=== PATIENT | female | born 1980 | race Caucasian/White ===

== ENCOUNTER 2023-11-25 17:38 | Inpatient (IN) ==
[2023-11-25 18:20] LABS: Appearance Urine Clear (Clear); Bilirubin Urine Negative (Negative); Blood Urine Negative (Negative); Color Urine Yellow; Glucose Urine UA Negative (Negative); Ketones Urine Negative (Negative); Leukocyte Esterase Urine Negative (Negative); Nitrite Urine Negative (Negative); Protein Urine Negative (Negative); Specific Gravity Urine 1.004 (1.000-1.030); Urobilinogen Urine Negative (Negative)
--- NOTE | 2023-11-25 18:30 | Emergency Department Note ---
Impression & Plan Anxiety and depression, Insomnia ED Provider Note Provider: Lui Braswell MD DATE OF SERVICE: 11/25/2023 CHIEF COMPLAINT: Depression anxiety not sleeping HISTORY OF PRESENT ILLNESS: Patient is a 43-year-old female history of anxiety and depression in the past presenting with today stating ongoing issues over the past 2 to 3 months. No clear trigger. Has been working with outpatient psychiatrist and has been on several medications and has had some titration of these including increasing Seroquel as well as using trazodone and Remeron. Not sleeping. We got an hour to sleep last night. Denies nightmares. Not sleeping during the day. Is a smoker but denies marijuana or drug or alcohol use. Has had some passive thoughts according to present of not wanting to be alive living with this but no active plans or attempts at the current time. History of prior psychiatric hospitalization just over a year ago at [facility]. As well as previous before then. Similar episodes. No hallucinations. No wishes to harm anybody else. PAST MEDICAL HISTORY: As noted above MEDICATIONS: Reviewed home medications SOCIAL HISTORY: PHYSICAL EXAM: GENERAL: alert and oriented on bed at bedside Head: normocephalic and atraumatic EYES: No injection, discharge or icterus although slightly tearful. EOMI. NECK: Trachea midline. ENT: Mucous membranes pink and moist. LUNGS: Airway patent. No retractions or tachypnea HEART: Regular rate and rhythm. SKIN: Acyanotic, warm, dry, without rashes EXTREMITIES: Without swelling, tenderness or deformity NEUROLOGICAL: No focal deficits. No aphasia. No facial droop or slurred speech. Ambulatory. Psych: Anxious. Somewhat tearful. Denies any hallucinations. Not responding to external stimuli. Denies any HI. Denies active SI but has had some passive thoughts. No SI plans or attempts reported. Patient's laboratory studies and imaging reviewed. Differential includes Mood disorder, infection, hypoglycemia, electrolyte abnormalities, cardiac sources, intracerebral event, toxicologic, trauma, neurologic, as well as other pathologies. IMPRESSION/MEDICAL DECISION MAKING: Basic blood work obtained. History of similar psychiatric episodes in the past with anxiety and depression affecting sleep. Has been following with outpatient psychiatry and had medications titrated. No acute suicide attempt or active plan but some passive thoughts. Seen with case management here. Basic labs obtained without significant abnormality. Discussed with her and her that we can provide additional outpatient referrals but she has had some basic medication titration already and do not feel comfortable providing more additional medications from the ER. Discussed option the possible inpatient voluntary referral. Do not believe I have involuntary grounds. Has a history of psychiatric hospitalization in the past. Patient accepted to [facility] on voluntary basis for inpatient mental health treatment. DIAGNOSIS: Depression, anxiety, insomnia DISPOSITION: To [facility] on a 201 for inpatient treatment. 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 Beliefs That Will Affect Care: None Feels Safe at Home: Yes Gender Identity: Female Assistive Devices: None Allergies Allergies Allergy/AdvReac Type Severity Reaction Status Date / Time No Known Allergies Allergy Unverified 11/25/23 18:13 Home Meds Home Medications Medication Instructions Recorded Confirmed clonazepam 1 mg tablet (Klonopin) 1 mg PO TID PRN Anxiety 11/25/23 11/25/23 fluoxetine 20 mg capsule (Prozac) 20 mg PO DAILY 11/25/23 11/25/23 mirtazapine 15 mg tablet (Remeron) 7.5 mg PO HS PRN Sleep 11/25/23 11/25/23 quetiapine 300 mg tablet (Seroquel) 600 mg PO HS 11/25/23 11/25/23 sertraline 50 mg tablet 50 mg PO HS 11/25/23 11/25/23 trazodone 150 mg tablet 150 mg PO HS PRN Sleep 11/25/23 11/25/23 Results & Data (ED) Vital Signs Vital Signs - 24 hr 11/25/23 17:45 Temperature 36.8 C Temperature Source Temporal Artery Scan Pulse Rate 102 H Respiratory Rate 18 Blood Pressure 121/70 Blood Pressure Mean 87 Pulse Oximetry 98 Oxygen Delivery Method Room Air Sepsis Recent Fever Within 48 Hours No Sepsis New/Unexplained Change in Mental Status No Sepsis Action Taken by Nursing No Action Required Laboratory Data 11/25/23 18:05 11/25/23 18:05 Lab Results 11/25/23 11/25/23 Range/Units 17:57 18:05 WBC 7.63 (4.8-10.8) K/ul RBC 4.97 (4.20-5.40) M/uL Hgb 16.5 H (12.0-16.0) g/dl Hct 47.4 H (37.0-47.0) % MCV 95.4 (80.0-100.0) fL MCH 33.2 (25.0-34.0) pg MCHC 34.8 (32.0-36.0) g/dL RDW Std Deviation 40.6 (36.4-46.3) fL RDW Coeff of Brynn 11.8 (11.5-14.5) % Plt Count 284 (130-400) K/uL MPV 9.7 (9.4-12.4) fL Immature Gran % (Auto) 0.4 % Neut % (Auto) 70.9 % Lymph % (Auto) 19.4 % [place] % (Auto) 6.3 % Eos % (Auto) 2.2 % Baso % (Auto) 0.8 % Neut # (Auto) 5.41 (1.40-6.50) K/uL Lymph # (Auto) 1.48 (1.20-3.40) K/uL [place] # (Auto) 0.48 (0.11-0.59) K/uL Eos # (Auto) 0.17 (0.00-0.50) K/uL Baso # (Auto) 0.06 (0.00-0.20) K/uL Immature Gran # (Auto) 0.03 (0.01-0.20) K/uL Sodium 139 (136-145) mmol/L Potassium 3.8 (3.5-5.1) mmol/L Chloride 105 (98-107) mmol/L Carbon Dioxide 27 (21-32) mmol/L Anion Gap 7 (3-11) BUN 10 (6-23) mg/dl Creatinine 0.79 (0.6-1.2) mg/dl Est Cr Clr Drug Dosing 77.4 ml/min Est GFR ( Amer) 105.5 ml/min Est GFR (Non-Af Amer) 91.0 ml/min BUN/Creatinine Ratio 12.7 (10-20) Glucose 112 H (70-99(Fasting)) mg/dl Calcium 9.4 (8.6-10.3) mg/dl Total Bilirubin 0.3 (0.2-1.0) mg/dl AST 14 (13-39) U/L ALT 9 (7-52) U/L Alkaline Phosphatase 58 (34-104) U/L Total Protein 7.3 (6.0-8.3) gm/dl Albumin 4.5 (3.4-5.0) gm/dl Globulin 2.8 (2.5-4.0) gm/dl Albumin/Globulin Ratio 1.6 (0.9-2) TSH 3.732 (0.300-4.500) uIu/ml HCG, Qual Negative (Negative) Urine Color Yellow Urine Appearance Clear (Clear) Urine pH 6.0 (4.5-7.5) Ur Specific [place] 1.004 (1.000-1.030) Urine Protein Negative (Negative) Urine Glucose (UA) Negative (Negative) Urine Ketones Negative (Negative) Urine Blood Negative (Negative) Urine Nitrite Negative (Negative) Urine Bilirubin Negative (Negative) Urine Urobilinogen Negative (Negative) Ur Leukocyte Esterase Negative (Negative) Salicylates < 3.0 L (3.0-30) mg/dl Urine Opiates Screen Neg (Neg) Ur Methadone, Qual Neg (Neg) Acetaminophen < 3 L (10-30) ug/ml Urine Barbiturates Neg (Neg) Ur Phencyclidine (PCP) Neg (Neg) U Amphetamin/Meth Scrn Neg (Neg) MDMA (Ecstasy) Screen Neg (Neg) U Benzodiazepines Scrn Neg (Neg) Ur Cocaine Metabolite Neg (Neg) U Marijuana (THC) Screen Neg (Neg) Ethyl Alcohol mg/dL < 10.0 (<10.0) mg/dl SARS-CoV-2, RNA, NAAT NEGATIVE (NEGATIVE) Administered Medications Mirtazapine (Mirtazapine Tab 15 Mg Tab) 7.5 mg PO HS SASHA Stop: 12/25/23 22:59 Last Admin: 11/25/23 23:49 Dose: 7.5 mg Documented By: JOSE RAMON Quetiapine Fumarate (Quetiapine Fumarate 300 Mg Tablet) 600 mg PO HS SASHA Stop: 12/25/23 22:59 Last Admin: 11/25/23 23:50 Dose: 600 mg Documented By: JOSE RAMON Discharge Plan Visit Data Chief Complaint: Mental Health Evaluation Stated Complaint: MENTAL HEALTH EVAL ED Provider: Lui Braswell Discharge Problem: Anxiety and depression, Insomnia Patient Disposition: Admitted As Inpatient Discharge Instructions Interventions: ED Discharge Assessment Last Done: 11/25/23 22:41
[2023-11-25 18:44] LABS: Basophils # (auto) 0.06 K/uL (0.00-0.20); Basophils % (auto) 0.8 %; Eosinophils # (auto) 0.17 K/uL (0.00-0.50); Eosinophils % (auto) 2.2 %; Hematocrit (blood only) 47.4 % (37.0-47.0); Hemoglobin 16.5 g/dl (12.0-16.0); Immature Granulocytes # (auto) 0.03 K/uL (0.01-0.20); Immature Granulocytes % (auto) 0.4 %; Lymphocytes # (auto) 1.48 K/uL (1.20-3.40); Lymphocytes % (auto) 19.4 %; Mean Corpuscular Hemoglobin 33.2 pg (25.0-34.0); Mean Corpuscular Hgb Conc 34.8 g/dL (32.0-36.0); Mean Corpuscular Volume 95.4 fL (80.0-100.0); Mean Platelet Volume 9.7 fL (9.4-12.4); Monocytes # (auto) 0.48 K/uL (0.11-0.59); Monocytes % (auto) 6.3 %; Neutrophils # (auto) 5.41 K/uL (1.40-6.50); Neutrophils % (auto) 70.9 %; Platelet Count 284 K/uL (130-400); RDW Coefficient of Variation 11.8 % (11.5-14.5); RDW Standard Deviation 40.6 fL (36.4-46.3); Red Blood Count 4.97 M/uL (4.20-5.40); White Blood Count 7.63 K/ul (4.8-10.8)
[2023-11-25 19:00] LABS: Albumin Globulin Ratio 1.6 (0.9-2); Albumin Level 4.5 gm/dl (3.4-5.0); BUN Creatinine Ratio 12.7 (10-20); Bilirubin,Total 0.3 mg/dl (0.2-1.0); Calcium 9.4 mg/dl (8.6-10.3); Creatinine Clr Calc Pharmacy 77.4 ml/min; Est GFR (African American) 105.5 ml/min; Globulin 2.8 gm/dl (2.5-4.0); Potassium 3.8 mmol/L (3.5-5.1); Total Protein 7.3 gm/dl (6.0-8.3)
[2023-11-25 19:02] LABS: Amphetamines+Metham, Urine Neg (Neg); Barbiturates, Urine Neg (Neg); Benzodiazepine, Urine Neg (Neg); Cocaine, Urine Neg (Neg); MDMA (Ecstacy), Urine Neg (Neg); Marijuana, Urine Neg (Neg); Methadone, Urine Neg (Neg); Opiate, Urine Neg (Neg); Phencyclidine, Urine Neg (Neg)
[2023-11-25 19:05] LABS: Pregnancy Test, Serum Negative (Negative)
[2023-11-25 19:10] LABS: Acetaminophen < 3 ug/ml (10-30); Salicylate < 3.0 mg/dl (3.0-30)
[2023-11-25 19:14] LABS: Thyroid Stimulating Hormone 3.732 uIu/ml (0.300-4.500)
[2023-11-25] MEDS ORDERED: hydrOXYzine HCl 25 MG TAB PO PRN ×2 (22:48)
[2023-11-25] MEDS ORDERED: MAGNESIUM HYDROXIDE SUSP 30 ML UDC PO PRN (22:48)
[2023-11-25] MEDS ORDERED: SODIUM CHLORIDE 0.65% NA SOLN 45 ML (OCEAN) PRN (22:48)
[2023-11-25] MEDS ORDERED: ALUMINUM/MAGNESIUM SUSP 30 ML UDC PO PRN (22:48)
[2023-11-25] MEDS ORDERED: BISMUTH SUBSALICYLATE LIQD 236 ML PO PRN (22:48)
[2023-11-25] MEDS: MIRTAZAPINE TAB 15 MG TAB PO SCH (23:49)
[2023-11-25] MEDS: QUEtiapine FUMARATE 300 MG TABLET PO SCH (23:50)
[2023-11-26] MEDS: NICOTINE 21 MG/24 HR TDSY TD SCH (09:14)
--- NOTE | 2023-11-26 10:28 | History & Physical ---
Date of Service November 26, 2023 Impression / Recommendations Impression Recurrent depression with possible vitamin deficiency causing additional symptoms. No evidence of denise or psychosis. (1) Anxiety and depression: (2) Insomnia: Plan The patient was admitted to the [facility] ([facility]) on q15 min checks (behavioral with suicide precautions) for safety. The patient will participate in group, recreational, and milieu therapies and will be offered additional individual and family sessions as clinically appropriate. Ms. Perez will benefit from further medication changes to address her current symptoms.We discuss different approaches to targeting her symptoms including lowering Seroquel and discontinuing Zoloft and Prozac but to use an SNRI for depression. This changes will require careful consideration for discontinuation symptoms. To help avoid severe discontinuation discomfort we discuss changing her as needed Klonopin to schedule at a dose of 0.5 mg in the afternoon and 1 mg at bedtime. She will no longer need trazodone. Ms. Perez declined the offer to lower Seroquel and to switch to an SNRI. She agreed to continue Seroquel at the current dose of 600 mg daily, discontinue Zoloft, keep Prozac at 20 mg, keep Remeron at 7.5, and adjust Klonopin as stated before. We discussed requesting a B12 and folate level to assess the need for B12 supplementation. Inventory Assets Strengths: Prior good response to treatment Good social support General good health Interested in treatment Needs: support during medication changes sleep hygiene education Suicide Risk Level Suicide Risk Level: Moderate (q15 min suicide checks) Risk Factors Assessment Mental Health Diagnoses: Yes Previous Psychiatric Hospitalization: Yes Hopelessness: Yes Protective Factors Assessment : Yes Responsible for Young Children: Yes Employed: No (Stopped working 1 month ago due to her mental health.) Stable Relationships: Yes Supportive Family: Yes Psychiatric History Identifying Data ADELA PEREZ is a 43-year-old F who currently lives with her and children, has a history of r, and was admitted on 11/25/23 22:37 on a 201 voluntary commitment. Chief Complaint "I feel awful. I've been depressed for two months." History of Present Illness Ms. Perez is a 43-year-old female with history of depression she presented to the emergency department complaining of passive suicidal ideations. Ms. Perez explained that her first episode of depression occurred after her second the depression started in the . Since then she has had 5 separate episodes of depression. The current episode of depression started around 2 months ago without any specific trigger. Last year during a depressed young episode she required an admission to [facility] and was treated wit h Seroquel the medication was started at 50 mg and titrated up to 100 mg. Ms. Perez stated that after the addition of Seroquel she felt better and continued the medication combined with Zoloft until two months ago. When the new symptoms started her doctor started try titrating up Seroquel; she is currently taking 600 mg. Her doctor recommended first try trading Zoloft with Prozac. At this point Ms. Perez is taking 50 mg of Zoloft and 20 mg of Prozac. She was also prescribed trazodone Klonopin and Remeron as needed to help with insomnia. During our session today Ms. Perez explained that despite all the sedating medications she is still unable to sleep. She has been unable to sleep for the last 3 days and feels that this is causing an impact in her thinking process. She feels her thoughts are foggy and has poor concentration. During the daytime she feels tired and unable to function at home or at work. Ms. Perez stopped going to work because of this symptoms. She has staying in bed longer hours during the daytime due to feeling fatigued. Upon questioning for other possible symptoms, Ms. Perez mentioned having panic episodes. When asked to describe them she explained that she wakes up in the morning feeling tingling sensation all over her body she denied having increased heart rate sweats nausea or other typical symptoms of panic. Ms. Perez has a fairly normal physical exam but exhibits angular cheilitis, a sign of vitamin B deficiency. This added to the tingling sensation and memory problems (subjective) warrant the need for a B12 level assessment. Past Psychiatric History Previous Psych History: Ms. Perez has a history of depression starting in the . Ms. Perez denies a history of symptoms consistent with denise or hypomania, denies a history of psychosis. She denies a history of suicide attempts. Outpatient Services: Ms. Perez is seeing a psychiatrist, Ekaterina Reyna, at [facility]. Previous Psych Admissions: She has a history of inpatient treatment in the past at [facility], [facility], and [facility]. The most recent admission was at [facility] approximately a year ago or a year and a half ago all admissions due to depression. History of Previous Suicide Attempt: No Past Medication Trials: Medications used in the past includes sertraline, quetiapine, trazodone, mirtazapine, clonazepam, fluoxetine. Allergies Allergy/AdvReac Type Severity Reaction Status Date / Time No Known Allergies Allergy Unverified 11/25/23 18:13 Home Medications Medication Instructions Recorded Confirmed Type clonazepam 1 mg tablet 1 mg PO TID PRN Anxiety 11/26/23 11/26/23 History fluoxetine 20 mg capsule (Prozac) 20 mg PO DAILY 11/26/23 11/26/23 History mirtazapine 7.5 mg tablet 7.5 mg PO HS PRN Insomnia 11/26/23 11/26/23 History quetiapine 200 mg tablet (Seroquel) 200 mg PO HS 11/26/23 11/26/23 History quetiapine 400 mg tablet (Seroquel) 400 mg PO HS 11/26/23 11/26/23 History sertraline 100 mg tablet 200 mg PO HS 11/26/23 11/26/23 History trazodone 150 mg tablet 150 mg PO HS PRN Insomnia 11/26/23 11/26/23 History Family History Family History of: Depression (father, paternal grandmother and brother with depression. Denied a family hx of Bipolar disorder) Alcohol History Hx of Alcohol Use Over the Past 12 Months: No AUDIT Total Score: 0 Smoking Use Have You Smoked or Used Tobacco Products in the Last 30 Days: Yes tobacco type: cigarettes Smoking Status: Current every day smoker Smoking packs per day: 1.5 Substance History Hx of Prescription Med Misuse Over the Past 12 Months: No Hx of Over the Counter Med Misuse Over the Past 12 Months: No Hx of Inhalent Misuse Over the Past 12 Months: No Hx of Organic Substance Use Over the Past 12 Months: No Hx of Illegal Substances/Street Drug Use Over Past 12 Months: No Problems as a Result of Past Substance Use: None Identified Personal History Living Arrangements: Home Marital Status: Beliefs That Will Affect Care: None Current Legal Problems: No Psychological Trauma History Comment: Denied any hx of trauma in childhood or adulthood. 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 Psychiatric: as described above Endocrine: + fatigue Physical Exam Psychiatric: Orientation: alert and oriented x 3 Apperance: + disheveled and appeared stated age Eye Contact: good eye contact Motor Behavior: steady gait and station and no abnormal motor movements Speech: normal rate/rhythm/volume of speech Affect: + depressed affect, + anxious affect and + tearful affect Mood: + depressed mood Thought Process: goal directed thought process Thought Content: + hopelessness Suicidal Thoughts: denies suicidal plan and denies suicidal intent Suicidal thoughts have been present for the last 2 months without any evidence of plan or intent. Homicidal Thoughts: denies homicidal thoughts Cognition: attention grossly intact and language grossly intact Estimated Intelligence: average estimated intelligence Insight: + fair insight Judgment: + fair judgement Vital Signs (Past 24 Hours): Last Vital Signs Temp 36.9 C 11/26/23 06:27 Pulse 111 H 11/26/23 06:28 Resp 16 11/26/23 06:27 BP 92/55 L 11/26/23 06:28 Pulse Ox 97 11/26/23 00:05 O2 Del Method Room Air 11/26/23 00:05 Exam Statement: A physical exam was performed in the ED by ED physician for the purposes of medical clearance. I accept that physical as correct and adequate for the purposes of the inpatient physical exam. Results & Data ([facility]) Laboratory Results Laboratory Results - last 24 hr 11/25/23 11/25/23 17:57 18:05 WBC 7.63 RBC 4.97 Hgb 16.5 H Hct 47.4 H MCV 95.4 MCH 33.2 MCHC 34.8 RDW Std Deviation 40.6 RDW Coeff of Brynn 11.8 Plt Count 284 MPV 9.7 Immature Gran % (Auto) 0.4 Neut % (Auto) 70.9 Lymph % (Auto) 19.4 [place] % (Auto) 6.3 Eos % (Auto) 2.2 Baso % (Auto) 0.8 Neut # (Auto) 5.41 Lymph # (Auto) 1.48 [place] # (Auto) 0.48 Eos # (Auto) 0.17 Baso # (Auto) 0.06 Immature Gran # (Auto) 0.03 Sodium 139 Potassium 3.8 Chloride 105 Carbon Dioxide 27 Anion Gap 7 BUN 10 Creatinine 0.79 Est Cr Clr Drug Dosing 77.4 Est GFR ( Amer) 105.5 Est GFR (Non-Af Amer) 91.0 BUN/Creatinine Ratio 12.7 Glucose 112 H Calcium 9.4 Total Bilirubin 0.3 AST 14 ALT 9 Alkaline Phosphatase 58 Total Protein 7.3 Albumin 4.5 Globulin 2.8 Albumin/Globulin Ratio 1.6 TSH 3.732 HCG, Qual Negative Urine Color Yellow Urine Appearance Clear Urine pH 6.0 Ur Specific [place] 1.004 Urine Protein Negative Urine Glucose (UA) Negative Urine Ketones Negative Urine Blood Negative Urine Nitrite Negative Urine Bilirubin Negative Urine Urobilinogen Negative Ur Leukocyte Esterase Negative Salicylates < 3.0 L Urine Opiates Screen Neg Ur Methadone, Qual Neg Acetaminophen < 3 L Urine Barbiturates Neg Ur Phencyclidine (PCP) Neg U Amphetamin/Meth Scrn Neg MDMA (Ecstasy) Screen Neg U Benzodiazepines Scrn Neg Ur Cocaine Metabolite Neg U Marijuana (THC) Screen Neg Ethyl Alcohol mg/dL < 10.0 SARS-CoV-2, RNA, NAAT NEGATIVE Diagnostic Findings Major Disorder, Recurrent, severe. Current Inpatient Medications Current Inpatient Medications: Current Inpatient Medications Acetaminophen (Acetaminophen 325 Mg Tab) 650 mg PO Q4H PRN PRN Reason: Headache or Minor Fever Stop: 12/25/23 22:47 Al Hydrox/Mg Hydrox/Simethicone (Aluminum/Magnesium Susp 30 Ml Udc) 30 ml PO Q4H PRN PRN Reason: GI Upset Stop: 12/25/23 22:47 Bismuth Subsalicylate (Bismuth Subsalicylate Liqd 236 Ml) 15 ml PO PRN PRN PRN Reason: Loose Stool Stop: 12/25/23 22:47 Hydroxyzine HCl (Hydroxyzine Hcl 25 Mg Tab) 50 mg PO HSZ PRN PRN Reason: Insomnia Stop: 12/25/23 22:47 Hydroxyzine HCl (Hydroxyzine Hcl 25 Mg Tab) 25 mg PO Q4H PRN PRN Reason: Anxiety Stop: 12/25/23 22:47 Magnesium Hydroxide (Magnesium Hydroxide Susp 30 Ml Udc) 30 ml PO DAILY PRN PRN Reason: Constipation Stop: 12/25/23 22:47 Mirtazapine (Mirtazapine Tab 15 Mg Tab) 7.[address] [facility] Stop: 12/25/23 22:59 Last Admin: 11/25/23 23:49 Dose: 7.5 mg Miscellaneous (Remove Nicoderm Patch) 1 each N/A DAILY@[id number] [facility] Stop: 12/26/23 08:58 Last Admin: 11/26/23 09:14 Dose: Not Given Nicotine (Nicotine 21 Mg/24 Hr Tdsy) 1 patch TD QAM [facility] Stop: 12/26/23 08:59 Last Admin: 11/26/23 09:14 Dose: 1 patch Quetiapine Fumarate (Quetiapine Fumarate 300 Mg Tablet) [address] [facility] Stop: 12/25/23 22:59 Last Admin: 11/25/23 23:50 Dose: 600 mg Sodium Chloride (Sodium Chloride 0.65% Na Soln 45 Ml ([place])) 1 - 2 sprays NA PRN PRN PRN Reason: Nasal Dryness/Congestion Stop: 12/25/23 22:47
[2023-11-26] MEDS ORDERED: MIRTAZAPINE TAB 15 MG TAB PO PRN (12:14)
[2023-11-26] MEDS: clonazePAM 0.5 MG TAB PO SCH (15:51)
[2023-11-26] MEDS ORDERED: clonazePAM 0.5 MG TAB PO SCH (21:00)
[2023-11-26] MEDS: clonazePAM 1 MG TAB PO SCH (21:10)
[2023-11-27] MEDS: FLUoxetine HCL 20 MG CAP PO SCH (10:23)
--- NOTE | 2023-11-27 15:43 | Psychiatric Progress Note ---
Date of Service November 27, 2023 Impression / Recommendations Impression Recurrent depression with possible vitamin deficiency causing additional symptoms. No evidence of denise or psychosis. Agreeable to further medication changes. Continued inpatient hospitalization is medically necessary for ongoing monitoring and safety. Overall, I spent a total of 30 minutes with this case, including review of chart, direct evaluation of the patient,counseling the patient, ordering medication, coordination with nursing, and documentation. (1) Insomnia: (2) Major depressive disorder, recurrent episode with anxious distress: Plan 11/27/23: -Increase Prozac to 40mg po daily -Continue rest of medications without changes -Start B12 IM 1000mcg x one dose now -Monitor mood and sleep pattern 11/26/23: -continue Seroquel 600 mg daily, -Discontinue Zoloft, -Continue Prozac at 20 mg, - Schedule Remeron at 7.5 PO QHS (no longer PRN) -Adjust Klonopin to scheduled 05.mg po q4pm and 1mg po qhs (short term use). -Collect B12 level 11/25/23:The patient was admitted to the [facility] ([facility]) on q15 min checks (behavioral with suicide precautions) for safety. The patient will participate in group, recreational, and milieu therapies and will be offered additional individual and family sessions as clinically appropriate. Inventory Assets Strengths: Prior good response to treatment Good social support General good health Interested in treatment Needs: support during medication changes sleep hygiene education Suicide Risk Level Suicide Risk Level: Moderate (q15 min suicide checks) Risk Factors Assessment Do You Have Access To A Gun?: No Mental Health Diagnoses: Yes Previous Psychiatric Hospitalization: Yes Hopelessness: Yes Protective Factors Assessment : Yes Responsible for Young Children: Yes Employed: No (Stopped working 1 month ago due to her mental health.) Stable Relationships: Yes Supportive Family: Yes Interval History Identifying Information Mariana is a 43 yo woman with hx of depression and anxiety, admitted voluntarily due to passive suicidal ideation while undergoing medication changes in the OP setting. Chief Complaint "I may have slept a few hours. I don't feel better". Review of Systems Sleep Information Total Hours of Sleep: 6.5 Meal Information Percent Meal Consumed - Breakfast: 50 Percent Meal Consumed - Lunch: 90 Percent Meal Consumed - Dinner: 50 Subjective Subjective Patient was seen & assessed and interval progress reviewed with nursing. Patient signed a 72-hour letter yesterday requesting to be discharge, however today she rescinded letter and agreed to stay inpatient for further treatment and stabilization. We discuss the next steps for medication changes including increasing the dose of Prozac versus switching to an SNRI. Patient agreed to increase Prozac to 40 mg starting tomorrow. We received the results of the B12 level her level is 212 which is low and may be contributing to her mood symptoms and other somatic concerns including the generalized tingling sensation. Patient agreed to receive IM supplementation. She will receive B12 1000 mcg IM 1 dose today and may need to continue this supplementation after discharge. Patient shared that she has had impaired sleep with every prior depression episode. Continues to deny prior history of denise or hypomania. We have not addressed the dose of Seroquel. Patient also reported some mood changes related to her premenstrual cycle. She described depression being episodic but anxiety has been more constant with frequent worry and a tendency to have catastrophic thoughts. She continues to have decreased energy and anhedonia. She denies suicidal thoughts today. Physical Exam Mental Examination Appearance: Well Groomed Eye Contact: Maintains Eye Contact Motor Behavior: Unremarkable Speech: Normal Mood: Calm Affect: Calm and Flat Thought Process: Intact Hallucinations: None Insight: Fair Judgement: Fair Psychiatric Orientation: alert and oriented x 3 Apperance: appropriately dressed, appropriately groomed and appeared stated age Eye Contact: good eye contact Motor Behavior: steady gait and station and no abnormal motor movements Speech: normal rate/rhythm/volume of speech Affect: + depressed affect, + anxious affect and + tearful affect Mood: + depressed mood Thought Process: goal directed thought process Thought Content: + hopelessness Suicidal Thoughts: denies suicidal plan and denies suicidal intent Homicidal Thoughts: denies homicidal thoughts Cognition: attention grossly intact and language grossly intact Estimated Intelligence: average estimated intelligence Insight: + fair insight Judgment: + fair judgement Vital Signs (Past 24 Hours) Last Vital Signs Temp 36.9 C 11/27/23 06:29 Pulse 76 11/27/23 06:29 Resp 16 11/27/23 06:29 BP 91/60 L 11/27/23 06:29 Pulse Ox 97 11/26/23 00:05 O2 Del Method Room Air 11/26/23 00:05 Results & Data ([facility]) Laboratory Results Laboratory Results - last 24 hr 11/26/23 18:09 Vitamin B12 212 Current Inpatient Medications Current Inpatient Medications: Current Inpatient Medications Acetaminophen (Acetaminophen 325 Mg Tab) 650 mg PO Q4H PRN PRN Reason: Headache or Minor Fever Stop: 12/25/23 22:47 Al Hydrox/Mg Hydrox/Simethicone (Aluminum/Magnesium Susp 30 Ml Udc) 30 ml PO Q4H PRN PRN Reason: GI Upset Stop: 12/25/23 22:47 Bismuth Subsalicylate (Bismuth Subsalicylate Liqd 236 Ml) 15 ml PO PRN PRN PRN Reason: Loose Stool Stop: 12/25/23 22:47 Clonazepam (Clonazepam 1 Mg Tab) 1 mg PO HS [facility] Stop: 12/26/23 21:59 Last Admin: 11/26/23 21:10 Dose: 1 mg Clonazepam (Clonazepam 0.5 Mg Tab) 0.5 mg PO 1600 [facility] Stop: 12/26/23 15:59 Last Admin: 11/26/23 15:51 Dose: 0.5 mg Cyanocobalamin (Cyanocobalamin 1000 Mcg/Ml Vial) 1,000 mcg IM QAM [facility] Stop: 12/27/23 15:44 Folic Acid (Folic Acid 1 Mg Tab) 1 mg PO QAM [facility] Stop: 12/28/23 08:59 Hydroxyzine HCl (Hydroxyzine Hcl 25 Mg Tab) 50 mg PO HSZ PRN PRN Reason: Insomnia Stop: 12/25/23 22:47 Hydroxyzine HCl (Hydroxyzine Hcl 25 Mg Tab) 25 mg PO Q4H PRN PRN Reason: Anxiety Stop: 12/25/23 22:47 Magnesium Hydroxide (Magnesium Hydroxide Susp 30 Ml Udc) 30 ml PO DAILY PRN PRN Reason: Constipation Stop: 12/25/23 22:47 Mirtazapine (Mirtazapine Tab 15 Mg Tab) 7.5 mg PO HS [facility] Stop: 12/25/23 22:59 Last Admin: 11/26/23 21:13 Dose: 7.5 mg Miscellaneous (Remove Nicoderm Patch) 1 each N/A DAILY@0859 [facility] Stop: 12/26/23 08:58 Last Admin: 11/27/23 10:32 Dose: Not Given Nicotine (Nicotine 21 Mg/24 Hr Tdsy) 1 patch TD QAM [facility] Stop: 12/26/23 08:59 Last Admin: 11/27/23 10:32 Dose: 1 patch Quetiapine Fumarate (Quetiapine Fumarate 300 Mg Tablet) 600 mg PO HS [facility] Stop: 12/25/23 22:59 Last Admin: 11/26/23 21:13 Dose: 600 mg Sodium Chloride (Sodium Chloride 0.65% Na Soln 45 Ml ([place])) 1 - 2 sprays NA PRN PRN PRN Reason: Nasal Dryness/Congestion Stop: 12/25/23 22:47 Mental Health & Subst Abuse Tx Psychiatrist Date Of Appointment With Psychiatric Provider: 12/11/23-
[2023-11-27] MEDS: CYANOCOBALAMIN 1000 MCG/ML VIAL IM SCH (16:57)
[2023-11-28] MEDS: FLUoxetine HCL 20 MG CAP PO SCH (09:47)
[2023-11-28] MEDS: FOLIC ACID 1 MG TAB PO SCH (09:48)
--- NOTE | 2023-11-28 13:53 | Psychiatric Progress Note ---
Date of Service November 28, 2023 Impression / Recommendations Impression Recurrent depression with possible vitamin deficiency causing additional symptoms. No evidence of denise or psychosis. Agreeable to further medication changes. Continued inpatient hospitalization is medically necessary for ongoing monitoring and safety. Overall, I spent a total of 25 minutes with this case, including review of chart, direct evaluation of the patient,counseling the patient, ordering medication, coordination with nursing, and documentation. (1) Insomnia: (2) Major depressive disorder, recurrent episode with anxious distress: Plan 11/28/23: -Continue Prozac to 40mg po daily. Continue rest of medications without changes. -Continue rest of medications without changes -Start B12 IM 1000mcg x one dose now -Monitor mood and sleep pattern 11/27/23: -Increase Prozac to 40mg po daily -Continue rest of medications without changes -Start B12 IM 1000mcg x one dose now -Monitor mood and sleep pattern 11/26/23: -continue Seroquel 600 mg daily, -Discontinue Zoloft, -Continue Prozac at 20 mg, - Schedule Remeron at 7.5 PO QHS (no longer PRN) -Adjust Klonopin to scheduled 05.mg po q4pm and 1mg po qhs (short term use). -Collect B12 level 11/25/23:The patient was admitted to the [facility] ([facility] unit) on q15 min checks (behavioral with suicide precautions) for safety. The patient will participate in group, recreational, and milieu therapies and will be offered additional individual and family sessions as clinically appropriate. Inventory Assets Strengths: Prior good response to treatment Good social support General good health Interested in treatment Needs: support during medication changes sleep hygiene education Suicide Risk Level Suicide Risk Level: Moderate (q15 min suicide checks) Risk Factors Assessment Do You Have Access To A Gun?: No Mental Health Diagnoses: Yes Previous Psychiatric Hospitalization: Yes Hopelessness: Yes Protective Factors Assessment : Yes Responsible for Young Children: Yes Employed: No (Stopped working 1 month ago due to her mental health.) Stable Relationships: Yes Supportive Family: Yes Interval History Identifying Information Mariana is a 43 yo woman with hx of depression and anxiety, admitted voluntarily due to passive suicidal ideation while undergoing medication changes in the OP setting. Chief Complaint "[]". Review of Systems Sleep Information Total Hours of Sleep: 6.5 Meal Information Percent Meal Consumed - Breakfast: 75 Percent Meal Consumed - Lunch: 90 Percent Meal Consumed - Dinner: 100 Subjective Subjective Patient was seen & assessed and interval progress reviewed with treatment team and nursing and social work. Patient rates her mood at 3/10 (on a scale from 0-10 0 being the worst). She reports feeling anxious and continues to experience passive suicidal ideation. Patient received the first dose of B12 and tolerated well the increase of Prozac. She is attending groups and participating in unit activities. She has been in touch with her family. Interacts well with staff and peers. Despite the recorded 6.5 hours of sleep she believes she did not sleep that amount of time, did not feel that the sleep was restorative. Physical Exam Psychiatric Orientation: alert and oriented x 3 Apperance: appropriately dressed Eye Contact: good eye contact Motor Behavior: steady gait and station and no abnormal motor movements Speech: normal rate/rhythm/volume of speech Affect: + depressed affect, + anxious affect and + tearful affect Mood: + depressed mood Thought Process: goal directed thought process Thought Content: + hopelessness Suicidal Thoughts: + reports suicidal thoughts Homicidal Thoughts: denies homicidal thoughts Cognition: attention grossly intact and language grossly intact Estimated Intelligence: average estimated intelligence Insight: + fair insight Judgment: + fair judgement Vital Signs (Past 24 Hours) Last Vital Signs Temp 36.8 C 11/28/23 06:28 Pulse 68 11/28/23 06:29 Resp 16 11/28/23 06:28 BP 92/60 L 11/28/23 06:29 Pulse Ox 97 11/26/23 00:05 O2 Del Method Room Air 11/26/23 00:05 Results & Data ([facility]) Current Inpatient Medications Current Inpatient Medications: Current Inpatient Medications Acetaminophen (Acetaminophen 325 Mg Tab) 650 mg PO Q4H PRN PRN Reason: Headache or Minor Fever Stop: 12/25/23 22:47 Al Hydrox/Mg Hydrox/Simethicone (Aluminum/Magnesium Susp 30 Ml Udc) 30 ml PO Q4H PRN PRN Reason: GI Upset Stop: 12/25/23 22:47 Bismuth Subsalicylate (Bismuth Subsalicylate Liqd 236 Ml) 15 ml PO PRN PRN PRN Reason: Loose Stool Stop: 12/25/23 22:47 Clonazepam (Clonazepam 1 Mg Tab) 1 mg PO HS [facility] Stop: 12/26/23 21:59 Last Admin: 11/27/23 22:09 Dose: 1 mg Clonazepam (Clonazepam 0.5 Mg Tab) 0.5 mg PO 1600 [facility] Stop: 12/26/23 15:59 Last Admin: 11/27/23 16:57 Dose: 0.5 mg Cyanocobalamin (Cyanocobalamin 1000 Mcg/Ml Vial) 1,000 mcg IM QAM [facility] Stop: 12/27/23 15:59 Last Admin: 11/28/23 09:43 Dose: 1,000 mcg Fluoxetine HCl (Fluoxetine Hcl 20 Mg Cap) 40 mg PO QAM [facility] Stop: 12/28/23 08:59 Last Admin: 11/28/23 09:47 Dose: 40 mg Folic Acid (Folic Acid 1 Mg Tab) 1 mg PO QAM [facility] Stop: 12/28/23 08:59 Last Admin: 11/28/23 09:48 Dose: 1 mg Hydroxyzine HCl (Hydroxyzine Hcl 25 Mg Tab) 50 mg PO HSZ PRN PRN Reason: Insomnia Stop: 12/25/23 22:47 Hydroxyzine HCl (Hydroxyzine Hcl 25 Mg Tab) 25 mg PO Q4H PRN PRN Reason: Anxiety Stop: 12/25/23 22:47 Magnesium Hydroxide (Magnesium Hydroxide Susp 30 Ml Udc) 30 ml PO DAILY PRN PRN Reason: Constipation Stop: 12/25/23 22:47 Mirtazapine (Mirtazapine Tab 15 Mg Tab) 7.5 mg PO [facility] Stop: 12/25/23 22:59 Last Admin: 11/27/23 22:11 Dose: 7.5 mg Miscellaneous (Remove Nicoderm Patch) 1 each N/A DAILY@0859 [facility] Stop: 12/26/23 08:58 Last Admin: 11/28/23 09:57 Dose: Not Given Nicotine (Nicotine 21 Mg/24 Hr Tdsy) [facility] Stop: 12/26/23 08:59 Last Admin: 11/28/23 09:48 Dose: 1 patch Quetiapine Fumarate (Quetiapine Fumarate 300 Mg Tablet) 600 mg PO [facility] Stop: 12/25/23 22:59 Last Admin: 11/27/23 22:09 Dose: 600 mg Sodium Chloride (Sodium Chloride 0.65% Na Soln 45 Ml ([place])) 1 - 2 sprays NA PRN PRN PRN Reason: Nasal Dryness/Congestion Stop: 12/25/23 22:47 Mental Health & Subst Abuse Tx Psychiatrist Name of Psychiatrist: [facility] Psychiatrist's Date Of Appointment With Psychiatric Provider: 12/09/23 Time of Appointment with Psychiatrist: 11:00 AM Psychiatric Appointment Comment: [phone] [id number] Therapist Name of Therapist: [facility] Therapist's Time of Therapist Appointment: Requested to add you to waitlist for therapy. Therapy Appointment Comment: [phone] [id number]
--- NOTE | 2023-11-29 17:52 | Psychiatric Progress Note ---
Date of Service November 29, 2023 Impression / Recommendations Impression Recurrent depression with possible vitamin deficiency causing additional symptoms. No evidence of denise or psychosis. Agreeable to further medication changes. Continued inpatient hospitalization is medically necessary for ongoing monitoring and safety. Overall, I spent a total of 45 minutes with this case, including review of chart, direct evaluation of the patient,counseling the patient, ordering medication, interpretation of self-assessment tools and sharing the results with the patient, coordination with nursing, and documentation. (1) Insomnia: (2) Major depressive disorder, recurrent episode with anxious distress: Plan 11/29/23: -Decrease Seroquel to 400mg po HS -Add Benadryl (in substitution for Hydroxyzine) at 50mg PO PRN HS for insomnia. Due to concerns about antichol rebound from rapid taper of Seroquel -Continue Prozac to 40mg po daily. -Continue rest of medications without changes. -Start B12 IM 1000mcg x one dose now -Monitor mood and sleep pattern 11/28/23: -Continue Prozac to 40mg po daily. -Continue rest of medications without changes -Start B12 IM 1000mcg x one dose now -Monitor mood and sleep pattern 11/27/23: -Increase Prozac to 40mg po daily -Continue rest of medications without changes -Start B12 IM 1000mcg x one dose now -Monitor mood and sleep pattern 11/26/23: -continue Seroquel 600 mg daily, -Discontinue Zoloft, -Continue Prozac at 20 mg, - Schedule Remeron at 7.5 PO QHS (no longer PRN) -Adjust Klonopin to scheduled 05.mg po q4pm and 1mg po qhs (short term use). -Collect B12 level 11/25/23:The patient was admitted to the [facility] ([facility] health unit) on q15 min checks (behavioral with suicide precautions) for safety. The patient will participate in group, recreational, and milieu therapies and will be offered additional individual and family sessions as clinically appropriate. Inventory Assets Strengths: Prior good response to treatment Good social support General good health Interested in treatment Needs: support during medication changes sleep hygiene education Suicide Risk Level Suicide Risk Level: Moderate (q15 min suicide checks) Risk Factors Assessment Do You Have Access To A Gun?: No Mental Health Diagnoses: Yes Previous Psychiatric Hospitalization: Yes Hopelessness: Yes Protective Factors Assessment : Yes Responsible for Young Children: Yes Employed: No (Stopped working 1 month ago due to her mental health.) Stable Relationships: Yes Supportive Family: Yes Interval History Identifying Information Mariana is a 43 yo woman with hx of depression and anxiety, admitted voluntarily due to passive suicidal ideation while undergoing medication changes in the OP setting. Chief Complaint "I think my depression is worse than my anxiety". Review of Systems Sleep Information Total Hours of Sleep: 6 Sleep Comments: Pt has schedued Klonopin, Remeron and Seroquel. Meal Information Percent Meal Consumed - Breakfast: 100 Percent Meal Consumed - Lunch: 100 Percent Meal Consumed - Dinner: 100 Subjective Subjective Patient was seen & assessed and interval progress reviewed with nursing and social work. Patient completed self-assessment questionnaires for the purpose of today's evaluation: On the PHQ-9 she rated 3 for the items: Little interest and pleasure, feeling down and depressed or hopeless, trouble falling or staying asleep, and feeling tired all having little energy. She rated at 2 the items poor appetite, feeling bad about herself, and thoughts that you would be better off . She rated at 1 the items trouble concentrating and at 0 the item moving or speaking slowly this given this gives her a score of 19. She rated these problems as "very difficult." On HIMA-7 she rated at 3 the items trouble relaxing, at 2 the items feeling nervous anxious or on edge, feeling afraid as if something awful might happen. She rated at 1 the items not being able to stop worrying, worrying too much about different things, and becoming easily annoyed or irritable. She rated at 0 the item being so restless that it is hard to sit still. She rated this problems as "very difficult." this gives her a score of 11. On the MDQ she rated only 2 answers as "yes" the test is consistent with very minimal likelihood of having bipolar disorder. Based on these results we discussed the next potential medication changes I recommended lowering the dose of Seroquel she may benefit from lower Seroquel and a higher dose of Prozac. Will do 1 change at a time. Patient agreed to lo wer Prozac from 600 mg to 400 mg. Physical Exam Psychiatric Orientation: alert and oriented x 3 Apperance: appropriately dressed and appropriately groomed Eye Contact: good eye contact Motor Behavior: steady gait and station and no abnormal motor movements Speech: normal rate/rhythm/volume of speech Affect: + depressed affect and + anxious affect; no tearful affect Mood: + depressed mood Thought Process: goal directed thought process Thought Content: + hopelessness Suicidal Thoughts: denies suicidal plan; + reports suicidal thoughts Homicidal Thoughts: denies homicidal thoughts Cognition: attention grossly intact and language grossly intact Estimated Intelligence: average estimated intelligence Insight: + fair insight Judgment: + fair judgement Vital Signs (Past 24 Hours) Last Vital Signs Temp 36.8 C 11/29/23 06:32 Pulse 73 11/29/23 06:33 Resp 16 11/29/23 06:32 BP 89/57 L 11/29/23 06:33 Pulse Ox 97 11/26/23 00:05 O2 Del Method Room Air 11/26/23 00:05 Results & Data ([facility]) Current Inpatient Medications Current Inpatient Medications: Current Inpatient Medications Acetaminophen (Acetaminophen 325 Mg Tab) 650 mg PO Q4H PRN PRN Reason: Headache or Minor Fever Stop: 12/25/23 22:47 Al Hydrox/Mg Hydrox/Simethicone (Aluminum/Magnesium Susp 30 Ml Udc) 30 ml PO Q4H PRN PRN Reason: GI Upset Stop: 12/25/23 22:47 Bismuth Subsalicylate (Bismuth Subsalicylate Liqd 236 Ml) 15 ml PO PRN PRN PRN Reason: Loose Stool Stop: 12/25/23 22:47 Clonazepam (Clonazepam 1 Mg Tab) 1 mg PO HS [facility] Stop: 12/26/23 21:59 Last Admin: 11/28/23 22:53 Dose: 1 mg Cyanocobalamin (Cyanocobalamin 1000 Mcg/Ml Vial) 1,000 mcg IM QAM [facility] Stop: 12/27/23 15:59 Last Admin: 11/29/23 10:13 Dose: 1,000 mcg Fluoxetine HCl (Fluoxetine Hcl 20 Mg Cap) 40 mg PO QAM [facility] Stop: 12/28/23 08:59 Last Admin: 11/29/23 10:00 Dose: 40 mg Folic Acid (Folic Acid 1 Mg Tab) 1 mg PO QAM [facility] Stop: 12/28/23 08:59 Last Admin: 11/29/23 10:00 Dose: 1 mg Hydroxyzine HCl (Hydroxyzine Hcl 25 Mg Tab) 50 mg PO HSZ PRN PRN Reason: Insomnia Stop: 12/25/23 22:47 Hydroxyzine HCl (Hydroxyzine Hcl 25 Mg Tab) 25 mg PO Q4H PRN PRN Reason: Anxiety Stop: 12/25/23 22:47 Magnesium Hydroxide (Magnesium Hydroxide Susp 30 Ml Udc) 30 ml PO DAILY PRN PRN Reason: Constipation Stop: 12/25/23 22:47 Mirtazapine (Mirtazapine Tab 15 Mg Tab) 7.5 mg PO HS [facility] Stop: 12/25/23 22:59 Last Admin: 11/28/23 22:53 Dose: 7.5 mg Miscellaneous (Remove Nicoderm Patch) 1 each N/A DAILY@0859 [facility] Stop: 12/26/23 08:58 Last Admin: 11/29/23 10:00 Dose: 1 each Nicotine (Nicotine 21 Mg/24 Hr Tdsy) 1 patch TD QAM [facility] Stop: 12/26/23 08:59 Last Admin: 11/29/23 10:01 Dose: 1 patch Quetiapine Fumarate (Quetiapine Fumarate 300 Mg Tablet) 600 mg PO HS [facility] Stop: 12/25/23 22:59 Last Admin: 11/28/23 22:54 Dose: 600 mg Sodium Chloride (Sodium Chloride 0.65% Na Soln 45 Ml ([place])) 1 - 2 sprays NA PRN PRN PRN Reason: Nasal Dryness/Congestion Stop: 12/25/23 22:47 Mental Health & Subst Abuse Tx Psychiatrist Name of Psychiatrist: [facility] Psychiatrist's Date Of Appointment With Psychiatric Provider: 12/09/23 Time of Appointment with Psychiatrist: 11:00 AM Psychiatric Appointment Comment: [phone] [id number] Therapist Name of Therapist: [facility] Therapist's Time of Therapist Appointment: Requested to add you to waitlist for therapy. Therapy Appointment Comment: [address] [id number] Post Discharge Appointments Contact Information Discharge Discharge Address: [address] [place], [place] [address] [address]
[2023-11-29] MEDS: QUEtiapine FUMARATE 200 MG TAB PO SCH (21:30)
[2023-11-29] MEDS: diphenhydrAMINE Capsule 25 MG CAP PO PRN (21:33)
--- NOTE | 2023-11-30 09:39 | Psychiatric Progress Note ---
Date of Service November 30, 2023 Impression / Recommendations Impression Severe depression without psychosis has not yet improved, no evidence of denise, slight improvement of anxiety. Ambivalent about further medication changes. Patient had a family meeting today and her is eager in agreement that she will benefit from further treatment for stabilization. We discussed several options for treatment: 1. Adding lithium for antidepressant augmentation. This will include keeping Prozac at the current dose of 40 mg, continuing slow taper off of Seroquel, and immediate discontinuation of Remeron. 2. Increase of Prozac to 60 mg. This will include keeping Seroquel (taper may continue if indicated at a slower pace), discontinuation of Remeron. No lithium. 3. Switching from Prozac to an SNRI to target anhedonia, Discontinuation of Remeron. No lithium. 4. Switching from Prozac to a TCA. This will require a washout period. Discontinuation of Remeron. No lithium. Patient requested time to think about her options we discussed pros and cons and side effects of the medications proposed. Will revisit this by the end of the day. Recommend discontinuing Remeron since the medication was started by the outpatient psychiatrist for insomnia not been helpful at least to provide a subjective feeling of sleepiness and restorative sleep. Using it at a dose that can target depression and anxiety will not have the sedative effect that the patient is hoping this medication will provide. We discussed transcranial magnetic stimulation (TMS) as a potential outpatient treatment option that can be tried upon discharge. Continued inpatient hospitalization is medically necessary for ongoing monitoring and safety. Overall, I spent a total of 40 minutes with this case, including review of chart, direct evaluation of the patient,counseling the patient, ordering medication, interpretation of self-assessment tools and sharing the results with the patient, coordination with nursing, and documentation. (1) Insomnia: (2) Major depressive disorder, recurrent episode with anxious distress: Plan 11/30/23: -Discontinue Benadryl -Rest of medications without changes. -Continue Suicide precautions 11/29/23: -Decrease Seroquel to 400mg po HS -Add Benadryl (in substitution for Hydroxyzine) at 50mg PO PRN HS for insomnia. Due to concerns about antichol rebound from rapid taper of Seroquel -Continue Prozac to 40mg po daily. -Continue rest of medications without changes. -Start B12 IM 1000mcg x one dose now -Monitor mood and sleep pattern 11/28/23: -Continue Prozac to 40mg po daily. -Continue rest of medications without changes -Start B12 IM 1000mcg x one dose now -Monitor mood and sleep pattern 11/27/23: -Increase Prozac to 40mg po daily -Continue rest of medications without changes -Start B12 IM 1000mcg x one dose now -Monitor mood and sleep pattern 11/26/23: -continue Seroquel 600 mg daily, -Discontinue Zoloft, -Continue Prozac at 20 mg, - Schedule Remeron at 7.5 PO QHS (no longer PRN) -Adjust Klonopin to scheduled 05.mg po q4pm and 1mg po qhs (short term use). -Collect B12 level 11/25/23:The patient was admitted to the [facility]) on q15 min checks (behavioral with suicide precautions) for safety. The patient will participate in group, recreational, and milieu therapies and will be offered additional individual and family sessions as clinically appropriate. Inventory Assets Strengths: Prior good response to treatment Good social support General good health Interested in treatment Needs: support during medication changes sleep hygiene education Suicide Risk Level Suicide Risk Level: Moderate (q15 min suicide checks) Risk Factors Assessment Do You Have Access To A Gun?: No Mental Health Diagnoses: Yes Previous Psychiatric Hospitalization: Yes Hopelessness: Yes Protective Factors Assessment : Yes Responsible for Young Children: Yes Employed: No (Stopped working 1 month ago due to her mental health.) Stable Relationships: Yes Supportive Family: Yes Interval History Identifying Information Mariana is a 43 yo woman with hx of depression and anxiety, admitted voluntarily due to passive suicidal ideation while undergoing medication changes in the OP setting. Chief Complaint "I don't feel any better". Review of Systems Sleep Information Total Hours of Sleep: 8 Sleep Comments: Pt has schedued Klonopin, Remeron and Seroquel. Meal Information Percent Meal Consumed - Breakfast: 100 Percent Meal Consumed - Lunch: 100 Percent Meal Consumed - Dinner: 100 Subjective Subjective Patient was seen & assessed and interval progress reviewed with treatment team, nursing and social work. Met with patient for an discuss the results of the [place] sleep quality index that she completed according to these results they are appears to be insomnia directly related to the mood symptoms and not a primary sleep disorder. Patient indicated that on every episode of depression that sleep disruption has been a primary symptom. Staff reported an increase of sleep hours; however, the patient stated that she slept worse than previous nights. She had a decrease of the dose of Seroquel a nd took a as needed dose of Benadryl. We discussed discontinuing the Benadryl as it appears she had an idiosyncratic response to it. Patient still reporting very severe depression with pronounced anhedonia and suicidal thoughts are still present. She reported an improvement of the anxiety and almost complete resolution of the tingling sensation she had experienced before. Physical Exam Psychiatric Orientation: alert and oriented x 3 Apperance: appropriately dressed and appropriately groomed Eye Contact: good eye contact Motor Behavior: steady gait and station and no abnormal motor movements Speech: normal rate/rhythm/volume of speech Affect: + depressed affect and + anxious affect; no tearful affect Mood: + depressed mood Thought Process: goal directed thought process Thought Content: + hopelessness; not paranoid and no delusions Suicidal Thoughts: denies suicidal plan and denies suicidal intent; + reports suicidal thoughts Homicidal Thoughts: denies homicidal thoughts Cognition: attention grossly intact and language grossly intact Estimated Intelligence: average estimated intelligence Insight: + fair insight Judgment: + fair judgement Vital Signs (Past 24 Hours) Last Vital Signs Temp 36.8 C 11/30/23 06:29 Pulse 71 11/30/23 06:29 Resp 16 11/30/23 06:29 BP 90/59 L 11/30/23 06:29 Pulse Ox 97 11/26/23 00:05 O2 Del Method Room Air 11/26/23 00:05 Results & Data ([facility]) Current Inpatient Medications Current Inpatient Medications: Current Inpatient Medications Acetaminophen (Acetaminophen 325 Mg Tab) 650 mg PO Q4H PRN PRN Reason: Headache or Minor Fever Stop: 12/25/23 22:47 Al Hydrox/Mg Hydrox/Simethicone (Aluminum/Magnesium Susp 30 Ml Udc) 30 ml PO Q4H PRN PRN Reason: GI Upset Stop: 12/25/23 22:47 Bismuth Subsalicylate (Bismuth Subsalicylate Liqd 236 Ml) 15 ml PO PRN PRN PRN Reason: Loose Stool Stop: 12/25/23 22:47 Clonazepam (Clonazepam 1 Mg Tab) 1 mg PO HS SASHA Stop: 12/26/23 21:59 Last Admin: 11/29/23 21:29 Dose: 1 mg Diphenhydramine HCl (Diphenhydramine Capsule 25 Mg Cap) 50 mg PO HS PRN PRN Reason: Insomnia Stop: 12/29/23 18:17 Last Admin: 11/29/23 21:33 Dose: 50 mg Fluoxetine HCl (Fluoxetine Hcl 20 Mg Cap) 40 mg PO QAM SASHA Stop: 12/28/23 08:59 Last Admin: 11/30/23 09:24 Dose: 40 mg Folic Acid (Folic Acid 1 Mg Tab) 1 mg PO QAM SASHA Stop: 12/28/23 08:59 Last Admin: 11/30/23 09:25 Dose: 1 mg Hydroxyzine HCl (Hydroxyzine Hcl 25 Mg Tab) 25 mg PO Q4H PRN PRN Reason: Anxiety Stop: 12/25/23 22:47 Magnesium Hydroxide (Magnesium Hydroxide Susp 30 Ml Udc) 30 ml PO DAILY PRN PRN Reason: Constipation Stop: 12/25/23 22:47 Mirtazapine (Mirtazapine Tab 15 Mg Tab) 7.5 mg PO HS SASHA Stop: 12/25/23 22:59 Last Admin: 11/29/23 21:29 Dose: 7.5 mg Miscellaneous (Remove Nicoderm Patch) 1 each N/A DAILY@0859 [facility] Stop: 12/26/23 08:58 Last Admin: 11/30/23 09:26 Dose: 1 each Nicotine (Nicotine 21 Mg/24 Hr Tdsy) [facility] Stop: 12/26/23 08:59 Last Admin: 11/30/23 09:25 Dose: 1 patch Quetiapine Fumarate (Quetiapine Fumarate 200 Mg Tab) 400 mg PO HS SASHA Stop: 12/29/23 21:59 Last Admin: 11/29/23 21:30 Dose: 400 mg Sodium Chloride (Sodium Chloride 0.65% Na Soln 45 Ml ([place])) 1 - 2 sprays NA PRN PRN PRN Reason: Nasal Dryness/Congestion Stop: 12/25/23 22:47 Mental Health & Subst Abuse Tx Psychiatrist Name of Psychiatrist: [facility] Psychiatrist's Date Of Appointment With Psychiatric Provider: 12/09/23 Time of Appointment with Psychiatrist: 11:00 AM Psychiatric Appointment Comment: [address] [id number] Therapist Name of Therapist: [facility] [place] Therapist's Time of Therapist Appointment: Requested to add you to waitlist for therapy. Therapy Appointment Comment: [address] [id number] Post Discharge Appointments Contact Information Discharge Discharge Address: [address] [place] [address], [address] [id number]
[2023-11-30] MEDS: LITHIUM CARBONATE 300 MG TAB PO SCH (21:36)
--- NOTE | 2023-12-01 08:01 | Psychiatric Progress Note ---
Date of Service December 01, 2023 Impression / Recommendations Impression Severe depression without psychosis has not yet improved, no evidence of denise, slight improvement of anxiety. Ambivalent about further medication changes. Patient had a family meeting today and her is eager in agreement that she will benefit from further treatment for stabilization. Last evening around 7 PM patient requested to be seen and stated she wanted to try the idea of lithium. Patient agreed to adding lithium for antidepressant augmentation. This will include keeping Prozac at the current dose of 40 mg, continuing slow taper off of Seroquel, and immediate discontinuation of Remeron. I discontinued Remeron and added lithium 300 mg at bedtime. Seroquel was not changed last night. Today we discussed the slight improvement demonstrated by better sleep slightly better mood. Tingling sensation is likely related to serotonin. Patient was educated about concerns regarding serotonin syndrome and the need to continue tapering down Seroquel. She agreed. Overall, I spent a total of 40 minutes with this case, including review of chart, direct evaluation of the patient,counseling the patient, ordering medication, interpretation of self-assessment tools and sharing the results with the patient, coordination with nursing, and documentation. (1) Insomnia: (2) Major depressive disorder, recurrent episode with anxious distress: Plan 12/01/23: -Lower Seroquel to 200mg HS -Remeron discontinued last night -[place] started last ng at 300mg HS. Will continue without changes for augmentation. -Rest of medications without changes. -Continue Suicide precautions 11/30/23: -Discontinue Benadryl -Rest of medications without changes. -Continue Suicide precautions 11/29/23: -Decrease Seroquel to 400mg po HS -Add Benadryl (in substitution for Hydroxyzine) at 50mg PO PRN HS for insomnia. Due to concerns about antichol rebound from rapid taper of Seroquel -Continue Prozac to 40mg po daily. -Continue rest of medications without changes. -Start B12 IM 1000mcg x one dose now -Monitor mood and sleep pattern 11/28/23: -Continue Prozac to 40mg po daily. -Continue rest of medications without changes -Start B12 IM 1000mcg x one dose now -Monitor mood and sleep pattern 11/27/23: -Increase Prozac to 40mg po daily -Continue rest of medications without changes -Start B12 IM 1000mcg x one dose now -Monitor mood and sleep pattern 11/26/23: -continue Seroquel 600 mg daily, -Discontinue Zoloft, -Continue Prozac at 20 mg, - Schedule Remeron at 7.5 PO QHS (no longer PRN) -Adjust Klonopin to scheduled 05.mg po q4pm and 1mg po qhs (short term use). -Collect B12 level 11/25/23:The patient was admitted to the [facility] ([facility]) on q15 min checks (behavioral with suicide precautions) for safety. The patient will participate in group, recreational, and milieu therapies and will be offered additional individual and family sessions as clinically appropriate. Inventory Assets Strengths: Prior good response to treatment Good social support General good health Interested in treatment Needs: support during medication changes sleep hygiene education Suicide Risk Level Suicide Risk Level: Moderate (q15 min suicide checks) Risk Factors Assessment Do You Have Access To A Gun?: No Mental Health Diagnoses: Yes Previous Psychiatric Hospitalization: Yes Hopelessness: Yes Protective Factors Assessment : Yes Responsible for Young Children: Yes Employed: No (Stopped working 1 month ago due to her mental health.) Stable Relationships: Yes Supportive Family: Yes Interval History Identifying Information Mariana is a 43 yo woman with hx of depression and anxiety, admitted voluntarily due to passive suicidal ideation while undergoing medication changes in the OP setting. Chief Complaint "I think I slept a little bit better. But I still feel very depressed. I want to get better." Review of Systems Sleep Information Total Hours of Sleep: 7.25 Sleep Comments: Pt has schedued Klonopin and Seroquel. Meal Information Percent Meal Consumed - Breakfast: 100 Percent Meal Consumed - Lunch: 100 Percent Meal Consumed - Dinner: 100 Subjective Subjective Patient was seen & assessed and interval progress reviewed with nursing and social work. Patient reported taking the first dose of lithium last night as recommended. She denied side effects except for the return of the tingling sensation she had described before. Patient indicated that she was able to sleep better last night. She continues to have passive suicidal ideation. Patient explained that she does not have suicidal intent "I just feel I want to feel better. It is ever going to end." Per staff the patient has been attending group activities, rated her mood today as 5/10 (previously 3/10). Physical Exam Psychiatric Orientation: alert and oriented x 3 Apperance: appropriately dressed, appropriately groomed, + disheveled and appeared stated age Eye Contact: good eye contact Motor Behavior: steady gait and station and no abnormal motor movements Speech: normal rate/rhythm/volume of speech Affect: + depressed affect and + anxious affect (less anxious than before); no tearful affect Mood: + depressed mood Thought Process: goal directed thought process Thought Content: + hopelessness; not paranoid and no delusions Suicidal Thoughts: denies suicidal plan and denies suicidal intent; + reports suicidal thoughts Homicidal Thoughts: denies homicidal thoughts Cognition: attention grossly intact and language grossly intact Estimated Intelligence: average estimated intelligence Insight: + fair insight Judgment: + fair judgement Vital Signs (Past 24 Hours) Last Vital Signs Temp 37 C 12/01/23 06:28 Pulse 83 12/01/23 06:28 Resp 16 12/01/23 06:28 BP 87/55 L 12/01/23 06:28 Pulse Ox 97 11/26/23 00:05 O2 Del Method Room Air 11/26/23 00:05 Results & Data ([facility]) Current Inpatient Medications Current Inpatient Medications: Current Inpatient Medications Acetaminophen (Acetaminophen 325 Mg Tab) 650 mg PO Q4H PRN PRN Reason: Headache or Minor Fever Stop: 12/25/23 22:47 Al Hydrox/Mg Hydrox/Simethicone (Aluminum/Magnesium Susp 30 Ml Udc) 30 ml PO Q4H PRN PRN Reason: GI Upset Stop: 12/25/23 22:47 Bismuth Subsalicylate (Bismuth Subsalicylate Liqd 236 Ml) 15 ml PO PRN PRN PRN Reason: Loose Stool Stop: 12/25/23 22:47 Clonazepam (Clonazepam 1 Mg Tab) 1 mg PO HS SASHA Stop: 12/26/23 21:59 Last Admin: 11/30/23 21:38 Dose: 1 mg Fluoxetine HCl (Fluoxetine Hcl 20 Mg Cap) 40 mg PO QAM SASHA Stop: 12/28/23 08:59 Last Admin: 11/30/23 09:24 Dose: 40 mg Folic Acid (Folic Acid 1 Mg Tab) 1 mg PO QAM SASHA Stop: 12/28/23 08:59 Last Admin: 11/30/23 09:25 Dose: 1 mg Hydroxyzine HCl (Hydroxyzine Hcl 25 Mg Tab) 25 mg PO Q4H PRN PRN Reason: Anxiety Stop: 12/25/23 22:47 [place] Carbonate ([place] Carbonate 300 Mg Tab) 300 mg PO [facility] Stop: 12/30/23 20:59 Last Admin: 11/30/23 21:42 Dose: Not Given Magnesium Hydroxide (Magnesium Hydroxide Susp 30 Ml Udc) 30 ml PO DAILY PRN PRN Reason: Constipation Stop: 12/25/23 22:47 Miscellaneous (Remove Nicoderm Patch) 1 each N/A DAILY@0859 [facility] Stop: 12/26/23 08:58 Last Admin: 11/30/23 09:26 Dose: 1 each Nicotine (Nicotine 21 Mg/24 Hr Tdsy) 1 patch TD QAM [facility] Stop: 12/26/23 08:59 Last Admin: 11/30/23 09:25 Dose: 1 patch Quetiapine Fumarate (Quetiapine Fumarate 200 Mg Tab) 400 mg PO HS [facility] Stop: 12/29/23 21:59 Last Admin: 11/30/23 21:36 Dose: 400 mg Sodium Chloride (Sodium Chloride 0.65% Na Soln 45 Ml ([place])) 1 - 2 sprays NA PRN PRN PRN Reason: Nasal Dryness/Congestion Stop: 12/25/23 22:47 Mental Health & Subst Abuse Tx Psychiatrist Name of Psychiatrist: [facility] Psychiatrist's Date Of Appointment With Psychiatric Provider: 12/09/23 Time of Appointment with Psychiatrist: 11:00 AM Psychiatric Appointment Comment: [address] [id number] Therapist Name of Therapist: [facility] Therapist's Time of Therapist Appointment: Requested to add you to waitlist for therapy. Therapy Appointment Comment: [address] [id number] Post Discharge Appointments Contact Information Discharge Discharge Address: [address] [place], [place] [address] [address]
[2023-12-01] MEDS: QUEtiapine FUMARATE 200 MG TAB PO SCH (21:47)
--- NOTE | 2023-12-02 10:18 | Psychiatric Progress Note ---
Date of Service December 02, 2023 Impression / Recommendations Impression Severe depression without psychosis has not yet improved, no evidence of denise, slight improvement of anxiety. Ambivalent about further medication discontinuation but willing to continue adding medications to her list. Suicidal ideation still present. Patient presented tearful and expressed hopelessness. Not ready for discharge. Overall, I spent a total of 40 minutes with this case, including review of chart, direct evaluation of the patient,counseling the patient, ordering medication, interpretation of self-assessment tools and sharing the results with the patient, coordination with nursing, and documentation. (1) Insomnia: (2) Major depressive disorder, recurrent episode with anxious distress: (3) Suicidal ideations: Plan 12/02/23: -Seroquel to 200mg moved to Qpm with food -Continue [place] 300mg HS. For augmentation. -Continue Prozac 40mg PO qam -Continue Suicide precautions 12/01/23: -Lower Seroquel to 200mg HS -Remeron discontinued last night -[place] started last night at 300mg HS. Will continue without changes for augmentation. -Rest of medications without changes. -Continue Suicide precautions 11/30/23: -Discontinue Benadryl -Rest of medications without changes. -Continue Suicide precautions 11/29/23: -Decrease Seroquel to 400mg po HS -Add Benadryl (in substitution for Hydroxyzine) at 50mg PO PRN HS for insomnia. Due to concerns about antichol rebound from rapid taper of Seroquel -Continue Prozac to 40mg po daily. -Continue rest of medications without changes. -Start B12 IM 1000mcg x one dose now -Monitor mood and sleep pattern 11/28/23: -Continue Prozac to 40mg po daily. -Continue rest of medications without changes -Start B12 IM 1000mcg x one dose now -Monitor mood and sleep pattern 11/27/23: -Increase Prozac to 40mg po daily -Continue rest of medications without changes -Start B12 IM 1000mcg x one dose now -Monitor mood and sleep pattern 11/26/23: -continue Seroquel 600 mg daily, -Discontinue Zoloft, -Continue Prozac at 20 mg, - Schedule Remeron at 7.5 PO QHS (no longer PRN) -Adjust Klonopin to scheduled 05.mg po q4pm and 1mg po qhs (short term use). -Collect B12 level 11/25/23:The patient was admitted to the [facility] ([facility] inpatient mental health unit) on q15 min checks (behavioral with suicide precautions) for safety. The patient will participate in group, recreational, and milieu therapies and will be offered additional individual and family sessions as clinically appropriate. Inventory Assets Strengths: Prior good response to treatment Good social support General good health Interested in treatment Needs: support during medication changes sleep hygiene education Suicide Risk Level Suicide Risk Level: High-Moderate (q15 min suicide checks) Risk Factors Assessment Do You Have Access To A Gun?: No Mental Health Diagnoses: Yes Previous Psychiatric Hospitalization: Yes Hopelessness: Yes Protective Factors Assessment : Yes Responsible for Young Children: Yes Employed: No (Stopped working 1 month ago due to her mental health.) Stable Relationships: Yes Supportive Family: Yes Interval History Identifying Information Mariana is a 43 yo woman with hx of depression and anxiety, admitted voluntarily due to passive suicidal ideation while undergoing medication changes in the OP setting. Chief Complaint "I feel discouraged. I am frustrated. Is there is ever going to end." Review of Systems Sleep Information Total Hours of Sleep: 7 Sleep Comments: Pt has schedued Klonopin and Seroquel. Meal Information Percent Meal Consumed - Breakfast: 100 Percent Meal Consumed - Lunch: 100 Percent Meal Consumed - Dinner: 100 Subjective Subjective Patient was seen & assessed and interval progress reviewed with treatment team, nursing and social work. According to staff patient had brighter affect this morning she told staff that she was feeling better and rated her mood at 5 out of 10. It was reported that she is feeling hopeful, and shower without prompting. Slept 7 hours. Has been attending groups. During the evaluation today, patient presented a completely different picture. Stated that she is discouraged, hopeless. Stated that she did not sleep "at all" but stayed in bed "to force myself to sleep." Patient stated that she had to "force myself to shower, and that is not me." When asked direct questions regarding specific symptoms of depression, patient appear unable to elaborate on her experience. She became tearful and perseverated on wanting to "feel better" patient indicated that her depression feels that is at the same level of severity as it was when it started 2 months ago. When asked about the content of her thoughts, she is unable to elaborate and answers "I do not really know." She has been unable to identify any specific stressors and is very focused on the sleep difficulty despite acknowledging that the sleep difficulty always arises during depression episodes and this appears once the depression is gone. We discuss not staying in bed if she is unable to sleep, rather sit up and do something relaxing like reading. Initially, patient was unable or unwilling to acknowledge even the littlest improvement; however, when I reminded her that her initial mood score was 3/10 and in the last 2 days it has been 5/10 patient was able to acknowledge that this is a positive change. When asked about suicidal ideations patient responded "I cannot say I do not have them." She acknowledge that she is not ready to return home. When attempting to explore home dynamics patient is evasive. Towards the end of the evaluation patient asked if she could have another medication added for sleep. I explained that this would be less beneficial than focusing on targeting the depression. I recommended to avoid making changes today except for adjusting the timing of Seroquel to be given with food to increase the likelihood of sedation by increasing absorption. Patient agreed with the plan. Physical Exam Psychiatric Orientation: alert and oriented x 3 Apperance: + disheveled Eye Contact: good eye contact (Tearful. ) Motor Behavior: no abnormal motor movements Speech: normal rate/rhythm/volume of speech Affect: + depressed affect and + tearful affect Mood: + depressed mood and + anxious mood Thought Process: goal directed thought process Thought Content: + cognitive distortions (discounting the positive. ) and + hopelessness; not paranoid Suicidal Thoughts: + reports suicidal thoughts Homicidal Thoughts: denies homicidal thoughts Hallucinations: no auditory hallucinations Insight: + limited insight Judgment: + impaired judgement Vital Signs (Past 24 Hours) Last Vital Signs Temp 36.9 C 12/02/23 06:28 Pulse 70 12/02/23 06:28 Resp 16 12/02/23 06:28 BP 91/60 L 12/02/23 06:28 Pulse Ox 97 11/26/23 00:05 O2 Del Method Room Air 11/26/23 00:05 Results & Data (U) Current Inpatient Medications Current Inpatient Medications: Current Inpatient Medications Acetaminophen (Acetaminophen 325 Mg Tab) 650 mg PO Q4H PRN PRN Reason: Headache or Minor Fever Stop: 12/25/23 22:47 Al Hydrox/Mg Hydrox/Simethicone (Aluminum/Magnesium Susp 30 Ml Udc) 30 ml PO Q4H PRN PRN Reason: GI Upset Stop: 12/25/23 22:47 Bismuth Subsalicylate (Bismuth Subsalicylate Liqd 236 Ml) 15 ml PO PRN PRN PRN Reason: Loose Stool Stop: 12/25/23 22:47 Clonazepam (Clonazepam 1 Mg Tab) 1 mg PO [facility] Stop: 12/26/23 21:59 Last Admin: 12/01/23 21:46 Dose: 1 mg Fluoxetine HCl (Fluoxetine Hcl 20 Mg Cap) [facility] [place] Stop: 12/28/23 08:59 Last Admin: 12/02/23 08:59 Dose: 40 mg Folic Acid (Folic Acid 1 Mg Tab) [facility] [place] Stop: 12/28/23 08:59 Last Admin: 12/02/23 08:59 Dose: 1 mg Hydroxyzine HCl (Hydroxyzine Hcl 25 Mg Tab) 25 mg PO Q4H PRN PRN Reason: Anxiety Stop: 12/25/23 22:47 [place] Carbonate ([place] Carbonate 300 Mg Tab) 300 mg PO [facility] Stop: 12/30/23 20:59 Last Admin: 12/01/23 21:47 Dose: 300 mg Magnesium Hydroxide (Magnesium Hydroxide Susp 30 Ml Udc) 30 ml PO DAILY PRN PRN Reason: Constipation Stop: 12/25/23 22:47 Miscellaneous (Remove Nicoderm Patch) 1 each N/A DAILY@0859 [facility] Stop: 12/26/23 08:58 Last Admin: 12/02/23 08:59 Dose: 1 each Nicotine (Nicotine 21 Mg/24 Hr Tdsy) 1 patch [facility] [place] Stop: 12/26/23 08:59 Last Admin: 12/02/23 09:00 Dose: 1 patch Quetiapine Fumarate (Quetiapine Fumarate 200 Mg Tab) 200 mg PO [facility] Stop: 12/31/23 21:59 Last Admin: 12/01/23 21:47 Dose: 200 mg Sodium Chloride (Sodium Chloride 0.65% Na Soln 45 Ml ([place])) 1 - 2 sprays NA PRN PRN PRN Reason: Nasal Dryness/Congestion Stop: 12/25/23 22:47 Mental Health & Subst Abuse Tx Psychiatrist Name of Psychiatrist: [facility] Psychiatrist's Date Of Appointment With Psychiatric Provider: 12/09/23 Time of Appointment with Psychiatrist: 11:00 AM Psychiatric Appointment Comment: [phone] [id number] Therapist Name of Therapist: [facility] Therapist's Time of Therapist Appointment: Requested to add you to waitlist for therapy. Therapy Appointment Comment: [address] [id number] Post Discharge Appointments Contact Information Discharge Discharge Address: [address] [place] [address], [address] [phone]
[2023-12-02] MEDS: QUEtiapine FUMARATE 200 MG TAB PO SCH (17:03)
--- NOTE | 2023-12-03 09:40 | Psychiatric Progress Note ---
Date of Service December 03, 2023 Impression / Recommendations Impression 43 yo woman with history of recurrent MDD and HIMA admitted for severe depression with inability to function and SI. Severe depression without psychosis has not yet improved, no evidence of denise, some improvement of anxiety. 12/03/2023: Ongoing severe depression but slept a little better. Tolerating medication adjustments so far. Doesn't desire further medication changes today. Overall, I spent a total of 50 minutes on this case including meeting with the patient, reviewing the chart, nursing report, multidisciplinary team meeting, orders, and documentation.. (1) Major depressive disorder, recurrent episode with anxious distress: (2) Insomnia: (3) Suicidal ideations: Plan 12/03/2023: -Continue current medications and tx plan. 12/02/23: -Seroquel to 200mg moved to Qpm with food -Continue [place] 300mg HS. For augmentation. -Continue Prozac 40mg PO qam -Continue Suicide precautions 12/01/23: -Lower Seroquel to 200mg HS -Remeron discontinued last night -[place] started last night at 300mg HS. Will continue without changes for augmentation. -Rest of medications without changes. -Continue Suicide precautions 11/30/23: -Discontinue Benadryl -Rest of medications without changes. -Continue Suicide precautions 11/29/23: -Decrease Seroquel to 400mg po HS -Add Benadryl (in substitution for Hydroxyzine) at 50mg PO PRN HS for insomnia. Due to concerns about antichol rebound from rapid taper of Seroquel -Continue Prozac to 40mg po daily. -Continue rest of medications without changes. -Start B12 IM 1000mcg x one dose now -Monitor mood and sleep pattern 11/28/23: -Continue Prozac to 40mg po daily. -Continue rest of medications without changes -Start B12 IM 1000mcg x one dose now -Monitor mood and sleep pattern 11/27/23: -Increase Prozac to 40mg po daily -Continue rest of medications without changes -Start B12 IM 1000mcg x one dose now -Monitor mood and sleep pattern 11/26/23: -continue Seroquel 600 mg daily, -Discontinue Zoloft, -Continue Prozac at 20 mg, - Schedule Remeron at 7.5 PO QHS (no longer PRN) -Adjust Klonopin to scheduled 05.mg po q4pm and 1mg po qhs (short term use). -Collect B12 level 11/25/23:The patient was admitted to the [facility] ([facility] mental health unit) on q15 min checks (behavioral with suicide precautions) for safety. The patient will participate in group, recreational, and milieu therapies and will be offered additional individual and family sessions as clinically appropriate. Inventory Assets Strengths: Prior good response to treatment Good social support General good health Interested in treatment Needs: support during medication changes sleep hygiene education Suicide Risk Level Suicide Risk Level: High-Moderate (q15 min suicide checks) (ongoing severe depression but feels safe in the hospital ) Risk Factors Assessment Do You Have Access To A Gun?: No Mental Health Diagnoses: Yes Previous Psychiatric Hospitalization: Yes Hopelessness: Yes Protective Factors Assessment : Yes Responsible for Young Children: Yes Employed: No (Stopped working 1 month ago due to her mental health.) Stable Relationships: Yes Supportive Family: Yes Interval History Identifying Information Mariana is a 43 yo woman with hx of depression and anxiety, admitted voluntarily due to passive suicidal ideation while undergoing medication changes in the OP setting. Chief Complaint "I slept a little better". Review of Systems Sleep Information Total Hours of Sleep: 6.30 Sleep Comments: Scheduled Seroquel and Klonopin Meal Information Percent Meal Consumed - Breakfast: 100 Percent Meal Consumed - Lunch: 100 Percent Meal Consumed - Dinner: 100 Subjective Subjective Patient was seen & assessed and interval progress reviewed with treatment team nursing and social work. Continues to have a lot of hopelessness. Slept a little better last night, took Seroquel at 8pm. She expresses desire to target her depression, as anxiety has improved. Reports history of being on sertraline for 18 years and having difficulty with the decision to switch medications. She is currently on Prozac 40mg and unsure if it is helping, as still experiences constant sadness and lack of motivation. She mentions having a little bit of an appetite, which is typically unusual for her during depressive episodes. Denies any medication side effects so far. She acknowledges slow onset of antidepressant effects and recalls past experiences with sertraline. Expresses hope that Prozac will be effective, given previous positive response to sertraline. She is also on a low dose of lithium as an augmentation agent and is aware of potential side effects and need to stay well hydrated. Physical Exam Psychiatric Orientation: alert and oriented x 3 Apperance: + disheveled Eye Contact: good eye contact Motor Behavior: no abnormal motor movements Speech: normal rate/rhythm/volume of speech Affect: + depressed affect and + tearful affect Mood: + depressed mood and + anxious mood Thought Process: goal directed thought process Thought Content: + cognitive distortions (discounting the positive. ) and + hopelessness Suicidal Thoughts: denies suicidal plan; + reports suicidal thoughts Homicidal Thoughts: denies homicidal thoughts Hallucinations: no auditory hallucinations Insight: + limited insight Judgment: + impaired judgement Vital Signs (Past 24 Hours) Last Vital Signs Temp 37.1 C 12/03/23 06:26 Pulse 55 L 12/03/23 06:26 Resp 16 12/03/23 06:26 BP 87/56 L 12/03/23 06:28 Pulse Ox 97 12/03/23 06:26 O2 Del Method Room Air 12/03/23 06:26 Results & Data ([facility]) Current Inpatient Medications Current Inpatient Medications: Current Inpatient Medications Acetaminophen (Acetaminophen 325 Mg Tab) 650 mg PO Q4H PRN PRN Reason: Headache or Minor Fever Stop: 12/25/23 22:47 Al Hydrox/Mg Hydrox/Simethicone (Aluminum/Magnesium Susp 30 Ml Udc) 30 ml PO Q4H PRN PRN Reason: GI Upset Stop: 12/25/23 22:47 Bismuth Subsalicylate (Bismuth Subsalicylate Liqd 236 Ml) 15 ml PO PRN PRN PRN Reason: Loose Stool Stop: 12/25/23 22:47 Clonazepam (Clonazepam 1 Mg Tab) 1 mg PO HS [facility] Stop: 12/26/23 21:59 Last Admin: 12/02/23 21:33 Dose: 1 mg Fluoxetine HCl (Fluoxetine Hcl 20 Mg Cap) 40 mg PO QAM [facility] Stop: 12/28/23 08:59 Last Admin: 12/03/23 09:04 Dose: 40 mg Folic Acid (Folic Acid 1 Mg Tab) 1 mg PO QAM [facility] Stop: 12/28/23 08:59 Last Admin: 12/03/23 09:04 Dose: 1 mg Hydroxyzine HCl (Hydroxyzine Hcl 25 Mg Tab) 25 mg PO Q4H PRN PRN Reason: Anxiety Stop: 12/25/23 22:47 [place] Carbonate ([place] Carbonate 300 Mg Tab) 300 mg PO HS [facility] Stop: 12/30/23 20:59 Last Admin: 12/02/23 21:33 Dose: 300 mg Magnesium Hydroxide (Magnesium Hydroxide Susp 30 Ml Udc) 30 ml PO DAILY PRN PRN Reason: Constipation Stop: 12/25/23 22:47 Miscellaneous (Remove Nicoderm Patch) 1 each N/A DAILY@0859 [facility] Stop: 12/26/23 08:58 Last Admin: 12/03/23 09:08 Dose: 1 each Nicotine (Nicotine 21 Mg/24 Hr Tdsy) 1 patch TD QAM [facility] Stop: 12/26/23 08:59 Last Admin: 12/03/23 09:07 Dose: 1 patch Quetiapine Fumarate (Quetiapine Fumarate 200 Mg Tab) 200 mg PO DAILY@1700 [facility] Stop: 01/01/24 16:59 Last Admin: 12/02/23 20:24 Dose: 200 mg Sodium Chloride (Sodium Chloride 0.65% Na Soln 45 Ml ([place])) 1 - 2 sprays NA PRN PRN PRN Reason: Nasal Dryness/Congestion Stop: 12/25/23 22:47 Mental Health & Subst Abuse Tx Psychiatrist Name of Psychiatrist: [facility] Psychiatrist's Date Of Appointment With Psychiatric Provider: 12/09/23 Time of Appointment with Psychiatrist: 11:00 AM Psychiatric Appointment Comment: [phone] [id number] Therapist Name of Therapist: [facility] Therapist's Time of Therapist Appointment: Requested to add you to waitlist for therapy. Therapy Appointment Comment: [phone] [id number] Post Discharge Appointments Contact Information Discharge Discharge Address: [address] [place], [place] [address] [address]
--- NOTE | 2023-12-04 08:55 | Psychiatric Progress Note ---
Date of Service December 04, 2023 Impression / Recommendations Impression 43 yo woman with history of recurrent MDD and HIMA admitted for severe depression with inability to function and SI. Severe depression without psychosis has not yet improved, no evidence of denise, some improvement of anxiety. 12/04/2023: Ongoing severe depression with hopelessness. She reports very poor sleep last night, this is at odd's with nursing documentation of reported sleep so unclear if due to lack of restorative sleep vs she was lying awake during RN checks. Discussed medication options for insomnia, she has previously tried mirtazapine and trazodone without benefit, Ambien contraindicated given care home use of Klonopin at HS. Reviewed other options and she consents to trial of doxepin in exchange for Seroquel. Reviewed side effects including but not limited to: serotonin syndrome given concurrent use of [place] and Prozac, dry mouth, sedation, increased appetite. Overall, I spent a total of 35 minutes on this case including meeting with the patient, reviewing the chart, nursing report, multidisciplinary team meeting, orders, and documentation.. (1) Major depressive disorder, recurrent episode with anxious distress: (2) Insomnia: (3) Suicidal ideations: Plan 12/04/2023: -Start doxepin 25mg HS po -Discontinue Seroquel 200mg HS 12/03/2023: -Continue current medications and tx plan. 12/02/23: -Seroquel to 200mg moved to Qpm with food -Continue [place] 300mg HS. For augmentation. -Continue Prozac 40mg PO qam -Continue Suicide precautions 12/01/23: -Lower Seroquel to 200mg HS -Remeron discontinued last night -[place] started last night at 300mg HS. Will continue without changes for augmentation. -Rest of medications without changes. -Continue Suicide precautions 11/30/23: -Discontinue Benadryl -Rest of medications without changes. -Continue Suicide precautions 11/29/23: -Decrease Seroquel to 400mg po HS -Add Benadryl (in substitution for Hydroxyzine) at 50mg PO PRN HS for insomnia. Due to concerns about antichol rebound from rapid taper of Seroquel -Continue Prozac to 40mg po daily. -Continue rest of medications without changes. -Start B12 IM 1000mcg x one dose now -Monitor mood and sleep pattern 11/28/23: -Continue Prozac to 40mg po daily. -Continue rest of medications without changes -Start B12 IM 1000mcg x one dose now -Monitor mood and sleep pattern 11/27/23: -Increase Prozac to 40mg po daily -Continue rest of medications without changes -Start B12 IM 1000mcg x one dose now -Monitor mood and sleep pattern 11/26/23: -continue Seroquel 600 mg daily, -Discontinue Zoloft, -Continue Prozac at 20 mg, - Schedule Remeron at 7.5 PO QHS (no longer PRN) -Adjust Klonopin to scheduled 05.mg po q4pm and 1mg po qhs (short term use). -Collect B12 level 11/25/23:The patient was admitted to the [facility] ([facility]) on q15 min checks (behavioral with suicide precautions) for safety. The patient will participate in group, recreational, and milieu therapies and will be offered additional individual and family sessions as clinically appropriate. Inventory Assets Strengths: Prior good response to treatment Good social support General good health Interested in treatment Needs: support during medication changes sleep hygiene education Suicide Risk Level Suicide Risk Level: High-Moderate (q15 min suicide checks) (ongoing severe depression but feels safe in the hospital ) Risk Factors Assessment Do You Have Access To A Gun?: No Mental Health Diagnoses: Yes Previous Psychiatric Hospitalization: Yes Hopelessness: Yes Protective Factors Assessment : Yes Responsible for Young Children: Yes Employed: No (Stopped working 1 month ago due to her mental health.) Stable Relationships: Yes Supportive Family: Yes Interval History Identifying Information Mariana is a 43 yo woman with hx of depression and anxiety, admitted voluntarily due to passive suicidal ideation while undergoing medication changes in the OP setting. Chief Complaint "I had a really rough night". Review of Systems Sleep Information Total Hours of Sleep: 6 Sleep Comments: Scheduled Seroquel and Klonopin Meal Information Percent Meal Consumed - Breakfast: 100 Percent Meal Consumed - Lunch: 100 Percent Meal Consumed - Dinner: 100 Subjective Subjective Patient was seen & assessed and interval progress reviewed with treatment team nursing and social work. Slightly more hopeful yesterday afternoon. Slept in this morning per nursing but she reports she was lying in bed awake. BP slightly low this morning but she denies any symptoms related to this. Engaging a bit more with peers. Today continues to feel hopeless and discouraged as she feels she only slept about 1-2 hours. Denies any other medication side effects. Continues to have sense of being "empty" deep in her stomach as part of her depression. Physical Exam Psychiatric Orientation: alert and oriented x 3 Apperance: + disheveled Eye Contact: good eye contact Motor Behavior: no abnormal motor movements Speech: normal rate/rhythm/volume of speech Affect: + depressed affect and + flat affect Mood: + depressed mood and + anxious mood Thought Process: goal directed thought process Thought Content: + cognitive distortions (discounting the positive. ) and + hopelessness Suicidal Thoughts: denies suicidal plan; + reports suicidal thoughts (intermittent) Homicidal Thoughts: denies homicidal thoughts Hallucinations: no auditory hallucinations Insight: + limited insight Judgment: + impaired judgement Vital Signs (Past 24 Hours) Last Vital Signs Temp 36.9 C 12/04/23 06:00 Pulse 84 12/04/23 06:13 Resp 16 12/04/23 06:00 BP 90/60 L 12/04/23 06:13 Pulse Ox 99 12/04/23 06:00 O2 Del Method Room Air 12/04/23 06:00 Results & Data ([facility]) Current Inpatient Medications Current Inpatient Medications: Current Inpatient Medications Acetaminophen (Acetaminophen 325 Mg Tab) 650 mg PO Q4H PRN PRN Reason: Headache or Minor Fever Stop: 12/25/23 22:47 Al Hydrox/Mg Hydrox/Simethicone (Aluminum/Magnesium Susp 30 Ml Udc) 30 ml PO Q4H PRN PRN Reason: GI Upset Stop: 12/25/23 22:47 Bismuth Subsalicylate (Bismuth Subsalicylate Liqd 236 Ml) 15 ml PO PRN PRN PRN Reason: Loose Stool Stop: 12/25/23 22:47 Clonazepam (Clonazepam 1 Mg Tab) 1 mg PO HS SASHA Stop: 12/26/23 21:59 Last Admin: 12/03/23 21:28 Dose: 1 mg Fluoxetine HCl (Fluoxetine Hcl 20 Mg Cap) 40 mg PO QAM SASHA Stop: 12/28/23 08:59 Last Admin: 12/03/23 09:04 Dose: 40 mg Folic Acid (Folic Acid 1 Mg Tab) 1 mg PO QAM SASHA Stop: 12/28/23 08:59 Last Admin: 12/03/23 09:04 Dose: 1 mg Hydroxyzine HCl (Hydroxyzine Hcl 25 Mg Tab) 25 mg PO Q4H PRN PRN Reason: Anxiety Stop: 12/25/23 22:47 [place] Carbonate ([place] Carbonate 300 Mg Tab) 300 mg PO HS SASHA Stop: 12/30/23 20:59 Last Admin: 12/03/23 21:27 Dose: 300 mg Magnesium Hydroxide (Magnesium Hydroxide Susp 30 Ml Udc) 30 ml PO DAILY PRN PRN Reason: Constipation Stop: 12/25/23 22:47 Miscellaneous (Remove Nicoderm Patch) 1 each N/A DAILY@2100 [facility] Stop: 01/02/24 20:59 Last Admin: 12/03/23 21:34 Dose: 1 each Nicotine (Nicotine 21 Mg/24 Hr Tdsy) 1 patch TD QAM SASHA Stop: 12/26/23 08:59 Last Admin: 12/03/23 09:07 Dose: 1 patch Quetiapine Fumarate (Quetiapine Fumarate 200 Mg Tab) 200 mg PO DAILY@1700 [facility] Stop: 01/01/24 16:59 Last Admin: 12/03/23 20:56 Dose: 200 mg Sodium Chloride (Sodium Chloride 0.65% Na Soln 45 Ml ([place])) 1 - 2 sprays NA PRN PRN PRN Reason: Nasal Dryness/Congestion Stop: 12/25/23 22:47 Mental Health & Subst Abuse Tx Psychiatrist Name of Psychiatrist: [facility] Psychiatrist's Date Of Appointment With Psychiatric Provider: 12/09/23 Time of Appointment with Psychiatrist: 11:00 AM Psychiatric Appointment Comment: [phone] [id number] Therapist Name of Therapist: [facility] Therapist's Time of Therapist Appointment: Requested to add you to waitlist for therapy. Therapy Appointment Comment: [address] [id number] Post Discharge Appointments Contact Information Discharge Discharge Address: [address] [place], [place] [address] [address]
[2023-12-04] MEDS: DOXEPIN HCL 25 MG CAPSULE PO SCH (21:38)
--- NOTE | 2023-12-05 08:55 | Psychiatric Progress Note ---
Date of Service December 05, 2023 Impression / Recommendations Impression 43 yo woman with history of recurrent MDD and HIMA admitted for severe depression with inability to function and SI. Severe depression without psychosis has not yet improved, no evidence of denise, some improvement of anxiety. 12/05/2023: Ongoing severe depression with hopelessness and anxiety that seems at times to almost have a degree of depression with psychotic features given her overwhelming sense that she may from this depressive episode but she can reality-test this slightly. Ongoing poor sleep, given multiple prior sleep medication trials will offer olanzapine as off-label option for sleep given se dating properties and off-label benefits for anxiety and depression augmentation. Reviewed side effects including but not limited to: movement (TD, NMS), cardiac (QTc prolongation), and metabolic (stroke, insulin resistance) and necessity for fasting lipid and glucose labwork (already done) and AIMS done with score of 0. MNPR due to severe anxiety about having a roommate and significant impact on sleep which is main treatment target at this point. Overall, I spent a total of 40 minutes on this case including meeting with the patient, reviewing the chart, nursing report, multidisciplinary team meeting, orders, and documentation.. (1) Major depressive disorder, recurrent episode with anxious distress: (2) Insomnia: (3) Suicidal ideations: Plan 12/05/2023: -Discontinue Doxepin as ineffective and further dose titration raises concern for serotonin syndrome risk -Start olanzapine 10mg HS po 12/04/2023: -Start doxepin 25mg HS po -Discontinue Seroquel 200mg HS 12/03/2023: -Continue current medications and tx plan. 12/02/23: -Seroquel to 200mg moved to Qpm with food -Continue [place] 300mg HS. For augmentation. -Continue Prozac 40mg PO qam -Continue Suicide precautions 12/01/23: -Lower Seroquel to 200mg HS -Remeron discontinued last night -[place] started last night at 300mg HS. Will continue without changes for augmentation. -Rest of medications without changes. -Continue Suicide precautions 11/30/23: -Discontinue Benadryl -Rest of medications without changes. -Continue Suicide precautions 11/29/23: -Decrease Seroquel to 400mg po HS -Add Benadryl (in substitution for Hydroxyzine) at 50mg PO PRN HS for insomnia. Due to concerns about antichol rebound from rapid taper of Seroquel -Continue Prozac to 40mg po daily. -Continue rest of medications without changes. -Start B12 IM 1000mcg x one dose now -Monitor mood and sleep pattern 11/28/23: -Continue Prozac to 40mg po daily. -Continue rest of medications without changes -Start B12 IM 1000mcg x one dose now -Monitor mood and sleep pattern 11/27/23: -Increase Prozac to 40mg po daily -Continue rest of medications without changes -Start B12 IM 1000mcg x one dose now -Monitor mood and sleep pattern 11/26/23: -continue Seroquel 600 mg daily, -Discontinue Zoloft, -Continue Prozac at 20 mg, - Schedule Remeron at 7.5 PO QHS (no longer PRN) -Adjust Klonopin to scheduled 05.mg po q4pm and 1mg po qhs (short term use). -Collect B12 level 11/25/23:The patient was admitted to the [facility] ([facility] unit) on q15 min checks (behavioral with suicide precautions) for safety. The patient will participate in group, recreational, and milieu therapies and will be offered additional individual and family sessions as clinically appropriate. Inventory Assets Strengths: Prior good response to treatment Good social support General good health Interested in treatment Needs: support during medication changes sleep hygiene education Suicide Risk Level Suicide Risk Level: High-Moderate (q15 min suicide checks) (ongoing severe depression but feels safe in the hospital ) Risk Factors Assessment Do You Have Access To A Gun?: No Mental Health Diagnoses: Yes Previous Psychiatric Hospitalization: Yes Hopelessness: Yes Protective Factors Assessment : Yes Responsible for Young Children: Yes Employed: No (Stopped working 1 month ago due to her mental health.) Stable Relationships: Yes Supportive Family: Yes Interval History Identifying Information Mariana is a 43 yo woman with hx of depression and anxiety, admitted voluntarily due to passive suicidal ideation while undergoing medication changes in the OP setting. Chief Complaint "I know it's irrational but I have this fear I'm not going to survive this, that I'll never make it home". Review of Systems Sleep Information Total Hours of Sleep: 6.45 Sleep Comments: Scheduled HS Klonopin and Doxepin Meal Information Percent Meal Consumed - Breakfast: 100 Percent Meal Consumed - Lunch: 100 Percent Meal Consumed - Dinner: 100 Subjective Subjective Patient was seen & assessed and interval progress reviewed with treatment team nursing and social work. Reports very poor sleep again last night. Continues to appear very sad. visited yesterday. She expresses significant discomfort with the idea of having a roommate, fearing it would impact her ability to sleep, which is already a major issue for her and becomes tearful discussing that maybe she should just go home. She is concerned that sharing a room might exacerbate her sleep problems, which she feels are crucial to her recovery process. She reports that the medication Doxepin, intended to aid her sleep, had no sedative effect on her, despite its usual properties. She also mentions that she previously reached a high dosage of Seroquel, which she feels might be contributing to her current feelings, possibly of anxiety, as she comes off this medication. She is open to trying different medications to improve her sleep, review that she has a history of using various medications like Klonopin, trazodone, mirtazapine and Ambien, but with limited success during depressive episodes when her sleep typically becomes disrupted. Overall, she is struggling with severe depression and sleep issues, and feeling uncertain about her recovery. Physical Exam Psychiatric Orientation: alert and oriented x 3 Apperance: + disheveled Eye Contact: good eye contact Motor Behavior: no abnormal motor movements Speech: normal rate/rhythm/volume of speech Affect: + depressed affect and + tearful affect Mood: + depressed mood and + anxious mood Thought Process: + circumstantial thought process Thought Content: + cognitive distortions (discounting the positive. ) and + hopelessness Suicidal Thoughts: denies suicidal plan; + reports suicidal thoughts (intermittent) Homicidal Thoughts: denies homicidal thoughts Hallucinations: no auditory hallucinations Insight: + limited insight Judgment: + impaired judgement Vital Signs (Past 24 Hours) Last Vital Signs Temp 37 C 12/05/23 06:38 Pulse 68 12/05/23 06:39 Resp 16 12/05/23 06:38 BP 94/61 L 12/05/23 06:39 Pulse Ox 99 12/04/23 06:00 O2 Del Method Room Air 12/04/23 06:00 Results & Data (U) Current Inpatient Medications Current Inpatient Medications: Current Inpatient Medications Acetaminophen (Acetaminophen 325 Mg Tab) 650 mg PO Q4H PRN PRN Reason: Headache or Minor Fever Stop: 12/25/23 22:47 Al Hydrox/Mg Hydrox/Simethicone (Aluminum/Magnesium Susp 30 Ml Udc) 30 ml PO Q4H PRN PRN Reason: GI Upset Stop: 12/25/23 22:47 Bismuth Subsalicylate (Bismuth Subsalicylate Liqd 236 Ml) 15 ml PO PRN PRN PRN Reason: Loose Stool Stop: 12/25/23 22:47 Clonazepam (Clonazepam 1 Mg Tab) 1 mg PO [facility] Stop: 12/26/23 21:59 Last Admin: 12/04/23 21:38 Dose: 1 mg Doxepin HCl (Doxepin Hcl 25 Mg Capsule) 25 mg PO [facility] Stop: 01/03/24 21:59 Last Admin: 12/04/23 21:38 Dose: 25 mg Fluoxetine HCl (Fluoxetine Hcl 20 Mg Cap) 40 mg PO [facility] Stop: 12/28/23 08:59 Last Admin: 12/05/23 08:40 Dose: 40 mg Folic Acid (Folic Acid 1 Mg Tab) 1 mg PO [facility] Stop: 12/28/23 08:59 Last Admin: 12/05/23 08:40 Dose: 1 mg Hydroxyzine HCl (Hydroxyzine Hcl 25 Mg Tab) 25 mg PO Q4H PRN PRN Reason: Anxiety Stop: 12/25/23 22:47 [place] Carbonate ([place] Carbonate 300 Mg Tab) 300 mg PO [facility] Stop: 12/30/23 20:59 Last Admin: 12/04/23 21:38 Dose: 300 mg Magnesium Hydroxide (Magnesium Hydroxide Susp 30 Ml Udc) 30 ml PO DAILY PRN PRN Reason: Constipation Stop: 12/25/23 22:47 Miscellaneous (Remove Nicoderm Patch) 1 each N/A DAILY@2100 [facility] Stop: 01/02/24 20:59 Last Admin: 12/04/23 21:41 Dose: 1 each Nicotine (Nicotine 21 Mg/24 Hr Tdsy) 1 patch TD QAM [facility] Stop: 12/26/23 08:59 Last Admin: 12/05/23 08:40 Dose: 1 patch Sodium Chloride (Sodium Chloride 0.65% Na Soln 45 Ml ([place])) 1 - 2 sprays NA PRN PRN PRN Reason: Nasal Dryness/Congestion Stop: 12/25/23 22:47 Mental Health & Subst Abuse Tx Psychiatrist Name of Psychiatrist: [facility] Psychiatrist's Date Of Appointment With Psychiatric Provider: 12/09/23 Time of Appointment with Psychiatrist: 11:00 AM Psychiatric Appointment Comment: [phone] [id number] Therapist Name of Therapist: [facility] Therapist's Time of Therapist Appointment: Requested to add you to waitlist for therapy. Therapy Appointment Comment: [address] [id number] Post Discharge Appointments Contact Information Discharge Discharge Address: [address] [place] [address], [address] [id number]
[2023-12-05] MEDS: OLANZapine 10 MG TAB PO SCH (21:59)
--- NOTE | 2023-12-06 08:55 | Psychiatric Progress Note ---
Date of Service December 06, 2023 Impression / Recommendations Impression 43 yo woman with history of recurrent MDD and HIMA admitted for severe depression with inability to function and SI. Severe depression without psychosis has not yet improved, no evidence of denise, some improvement of anxiety. 12/06/2023: Ongoing severe depression with hopelessness and anxiety but did sleep last night after addition of olanzapine. [place] level tomorrow AM as started 5 days ago, except level to be low as it's being used for augmentation. MNPR due to severe anxiety about having a roommate and significant impact on sleep which is main treatment target at this point. Overall, I spent a total of 36 minutes on this case including meeting with the patient, reviewing the chart, nursing report, multidisciplinary team meeting, orders, and documentation.. (1) Major depressive disorder, recurrent episode with anxious distress: (2) Insomnia: (3) Suicidal ideations: Plan 12/06/2023: -[place] level tomorrow AM -Continue current medications and tx plan 12/05/2023: -Discontinue Doxepin as ineffective and further dose titration raises concern for serotonin syndrome risk -Start olanzapine 10mg HS po 12/04/2023: -Start doxepin 25mg HS po -Discontinue Seroquel 200mg HS 12/03/2023: -Continue current medications and tx plan. 12/02/23: -Seroquel to 200mg moved to Qpm with food -Continue [place] 300mg HS. For augmentation. -Continue Prozac 40mg PO qam -Continue Suicide precautions 12/01/23: -Lower Seroquel to 200mg HS -Remeron discontinued last night -[place] started last night at 300mg HS. Will continue without changes for aug mentation. -Rest of medications without changes. -Continue Suicide precautions 11/30/23: -Discontinue Benadryl -Rest of medications without changes. -Continue Suicide precautions 11/29/23: -Decrease Seroquel to 400mg po HS -Add Benadryl (in substitution for Hydroxyzine) at 50mg PO PRN HS for insomnia. Due to concerns about antichol rebound from rapid taper of Seroquel -Continue Prozac to 40mg po daily. -Continue rest of medications without changes. -Start B12 IM 1000mcg x one dose now -Monitor mood and sleep pattern 11/28/23: -Continue Prozac to 40mg po daily. -Continue rest of medications without changes -Start B12 IM 1000mcg x one dose now -Monitor mood and sleep pattern 11/27/23: -Increase Prozac to 40mg po daily -Continue rest of medications without changes -Start B12 IM 1000mcg x one dose now -Monitor mood and sleep pattern 11/26/23: -continue Seroquel 600 mg daily, -Discontinue Zoloft, -Continue Prozac at 20 mg, - Schedule Remeron at 7.5 PO QHS (no longer PRN) -Adjust Klonopin to scheduled 05.mg po q4pm and 1mg po qhs (short term use). -Collect B12 level 11/25/23:The patient was admitted to the [facility] ([facility] health unit) on q15 min checks (behavioral with suicide precautions) for safety. The patient will participate in group, recreational, and milieu therapies and will be offered additional individual and family sessions as clinically appropriate. Inventory Assets Strengths: Prior good response to treatment Good social support General good health Interested in treatment Needs: support during medication changes sleep hygiene education Suicide Risk Level Suicide Risk Level: High-Moderate (q15 min suicide checks) (ongoing severe depression but feels safe in the hospital ) Risk Factors Assessment Do You Have Access To A Gun?: No Mental Health Diagnoses: Yes Previous Psychiatric Hospitalization: Yes Hopelessness: Yes Protective Factors Assessment : Yes Responsible for Young Children: Yes Employed: No (Stopped working 1 month ago due to her mental health.) Stable Relationships: Yes Supportive Family: Yes Interval History Identifying Information Mariana is a 43 yo woman with hx of depression and anxiety, admitted voluntarily due to passive suicidal ideation while undergoing medication changes in the OP setting. Chief Complaint "I still feel so empty and sad". Review of Systems Sleep Information Total Hours of Sleep: 6 Sleep Comments: Meal Information Percent Meal Consumed - Breakfast: 100 Percent Meal Consumed - Lunch: 90 Percent Meal Consumed - Dinner: 100 Subjective Subjective Patient was seen & assessed and interval progress reviewed with treatment team nursing and social work. Counselor had to wake her this morning to get her vitals. She reports ongoing severe depression but she did sleep last night after addition of olanzapine. Notes it's hard not to feel hopeless when she sees other peers around her getting better. No medication side effects, she wants to continue with olanzapine and current medications. Discussed ECT as future option should her fear come true of medications not helping with time. Physical Exam Psychiatric Orientation: alert and oriented x 3 Apperance: + disheveled Eye Contact: good eye contact Motor Behavior: no abnormal motor movements Speech: normal rate/rhythm/volume of speech Affect: + depressed affect and + tearful affect Mood: + depressed mood and + anxious mood Thought Process: + circumstantial thought process Thought Content: + cognitive distortions (discounting the positive. ) and + hopelessness Suicidal Thoughts: denies suicidal plan; + reports suicidal thoughts (intermittent) Homicidal Thoughts: denies homicidal thoughts Hallucinations: no auditory hallucinations Insight: + limited insight Judgment: + impaired judgement Vital Signs (Past 24 Hours) Last Vital Signs Temp 37 C 12/06/23 06:27 Pulse 55 L 12/06/23 06:28 Resp 16 12/06/23 06:27 BP 100/61 12/06/23 06:28 Pulse Ox 99 12/04/23 06:00 O2 Del Method Room Air 12/04/23 06:00 Results & Data ([facility]) Current Inpatient Medications Current Inpatient Medications: Current Inpatient Medications Acetaminophen (Acetaminophen 325 Mg Tab) 650 mg PO Q4H PRN PRN Reason: Headache or Minor Fever Stop: 12/25/23 22:47 Al Hydrox/Mg Hydrox/Simethicone (Aluminum/Magnesium Susp 30 Ml Udc) 30 ml PO Q4H PRN PRN Reason: GI Upset Stop: 12/25/23 22:47 Bismuth Subsalicylate (Bismuth Subsalicylate Liqd 236 Ml) 15 ml PO PRN PRN PRN Reason: Loose Stool Stop: 12/25/23 22:47 Clonazepam (Clonazepam 1 Mg Tab) 1 mg PO HS SASHA Stop: 12/26/23 21:59 Last Admin: 12/05/23 21:59 Dose: 1 mg Fluoxetine HCl (Fluoxetine Hcl 20 Mg Cap) 40 mg PO QAM SASHA Stop: 12/28/23 08:59 Last Admin: 12/05/23 08:40 Dose: 40 mg Folic Acid (Folic Acid 1 Mg Tab) 1 mg PO QAM SASHA Stop: 12/28/23 08:59 Last Admin: 12/05/23 08:40 Dose: 1 mg Hydroxyzine HCl (Hydroxyzine Hcl 25 Mg Tab) 25 mg PO Q4H PRN PRN Reason: Anxiety Stop: 12/25/23 22:47 [place] Carbonate ([place] Carbonate 300 Mg Tab) 300 mg PO HS SASHA Stop: 12/30/23 20:59 Last Admin: 12/05/23 21:59 Dose: 300 mg Magnesium Hydroxide (Magnesium Hydroxide Susp 30 Ml Udc) 30 ml PO DAILY PRN PRN Reason: Constipation Stop: 12/25/23 22:47 Miscellaneous (Remove Nicoderm Patch) 1 each N/A DAILY@2100 SASHA Stop: 01/02/24 20:59 Last Admin: 12/05/23 21:59 Dose: 1 each Nicotine (Nicotine 21 Mg/24 Hr Tdsy) 1 patch TD QAM SASHA Stop: 12/26/23 08:59 Last Admin: 12/05/23 08:40 Dose: 1 patch Olanzapine (Olanzapine 10 Mg Tab) 10 mg PO HS SASHA Stop: 01/04/24 21:59 Last Admin: 12/05/23 21:59 Dose: 10 mg Sodium Chloride (Sodium Chloride 0.65% Na Soln 45 Ml ([place])) 1 - 2 sprays NA PRN PRN PRN Reason: Nasal Dryness/Congestion Stop: 12/25/23 22:47 Mental Health & Subst Abuse Tx Psychiatrist Name of Psychiatrist: [facility] Psychiatrist's Date Of Appointment With Psychiatric Provider: 12/09/23 Time of Appointment with Psychiatrist: 11:00 AM Psychiatric Appointment Comment: [phone] [id number] Therapist Name of Therapist: [facility] Therapist's Time of Therapist Appointment: Requested to add you to waitlist for therapy. Therapy Appointment Comment: [address] [id number] Post Discharge Appointments Contact Information Discharge Discharge Address: [address] [place], [place] [address] [id number]
--- NOTE | 2023-12-07 08:52 | Psychiatric Progress Note ---
Date of Service December 07, 2023 Impression / Recommendations Impression 43 yo woman with history of recurrent MDD and HIMA admitted for severe depression with inability to function and SI. Severe depression without psychosis has not yet improved, no evidence of denise, some improvement of anxiety. 12/07/2023: Ongoing severe depression but slight improvement in mood today. Sleeping a little better with olanzapine. Reviewed [place] level, 0.2 and low given use is for augmentation, now at steady state. MNPR due to severe anxiety about having a roommate and significant impact on sleep which is main treatment target at this point. Overall, I spent a total of 28 minutes on this case including meeting with the patient, reviewing the chart, nursing report, multidisciplinary team meeting, orders, and documentation.. (1) Major depressive disorder, recurrent episode with anxious distress: (2) Insomnia: (3) Suicidal ideations: Plan 12/07/2023: Continue current medications and tx plan. 12/06/2023: -[place] level tomorrow AM -Continue current medications and tx plan 12/05/2023: -Discontinue Doxepin as ineffective and further dose titration raises concern for serotonin syndrome risk -Start olanzapine 10mg HS po 12/04/2023: -Start doxepin 25mg HS po -Discontinue Seroquel 200mg HS 12/03/2023: -Continue current medications and tx plan. 12/02/23: -Seroquel to 200mg moved to Qpm with food -Continue [place] 300mg HS. For augmentation. -Continue Prozac 40mg PO qam -Continue Suicide precautions 12/01/23: -Lower Seroquel to 200mg HS -Remeron discontinued last night -[place] started last night at 300mg HS. Will continue without changes for augmentation. -Rest of medications without changes. -Continue Suicide precautions 11/30/23: -Discontinue Benadryl -Rest of medications without changes. -Continue Suicide precautions 11/29/23: -Decrease Seroquel to 400mg po HS -Add Benadryl (in substitution for Hydroxyzine) at 50mg PO PRN HS for insomnia. Due to concerns about antichol rebound from rapid taper of Seroquel -Continue Prozac to 40mg po daily. -Continue rest of medications without changes. -Start B12 IM 1000mcg x one dose now -Monitor mood and sleep pattern 11/28/23: -Continue Prozac to 40mg po daily. -Continue rest of medications without changes -Start B12 IM 1000mcg x one dose now -Monitor mood and sleep pattern 11/27/23: -Increase Prozac to 40mg po daily -Continue rest of medications without changes -Start B12 IM 1000mcg x one dose now -Monitor mood and sleep pattern 11/26/23: -continue Seroquel 600 mg daily, -Discontinue Zoloft, -Continue Prozac at 20 mg, - Schedule Remeron at 7.5 PO QHS (no longer PRN) -Adjust Klonopin to scheduled 05.mg po q4pm and 1mg po qhs (short term use). -Collect B12 level 11/25/23:The patient was admitted to the [facility] ([facility] health unit) on q15 min checks (behavioral with suicide precautions) for safety. The patient will participate in group, recreational, and milieu therapies and will be offered additional individual and family sessions as clinically appropriate. Inventory Assets Strengths: Prior good response to treatment Good social support General good health Interested in treatment Needs: support during medication changes sleep hygiene education Suicide Risk Level Suicide Risk Level: High-Moderate (q15 min suicide checks) (ongoing severe depression but feels safe in the hospital ) Risk Factors Assessment Do You Have Access To A Gun?: No Mental Health Diagnoses: Yes Previous Psychiatric Hospitalization: Yes Hopelessness: Yes Protective Factors Assessment : Yes Responsible for Young Children: Yes Employed: No (Stopped working 1 month ago due to her mental health.) Stable Relationships: Yes Supportive Family: Yes Interval History Identifying Information Mariana is a 43 yo woman with hx of depression and anxiety, admitted voluntarily due to passive suicidal ideation while undergoing medication changes in the OP setting. Chief Complaint "Today has been decent". Review of Systems Sleep Information Total Hours of Sleep: 6.5 Meal Information Percent Meal Consumed - Breakfast: 100 Percent Meal Consumed - Lunch: 100 Percent Meal Consumed - Dinner: 100 Subjective Subjective Patient was seen & assessed and interval progress reviewed with treatment team nursing and social work. Flat affect, reporting feeling scared and nervous. She reports difficulty with sleep, stating that she fell asleep but woke up during the night but glad that with olanzapine she at least is getting a few hours of sleep per night. She continues to experience emotional distress and a persistent feeling of emptiness in her stomach along with some hopelessness but slightly more neutral mood today. She acknowledges a slight improvement in her overall mood and hopes for a better day. No other concerns or questions were raised. Physical Exam Psychiatric Orientation: alert and oriented x 3 Apperance: + disheveled Eye Contact: good eye contact Motor Behavior: no abnormal motor movements Speech: + abnormal rate/rhythm/volume of speech (soft) Affect: + depressed affect and + flat affect Mood: + depressed mood and + anxious mood Thought Process: + circumstantial thought process Thought Content: + cognitive distortions (discounting the positive. ) and + hopelessness Suicidal Thoughts: denies suicidal plan; + reports suicidal thoughts (intermittent) Homicidal Thoughts: denies homicidal thoughts Hallucinations: no auditory hallucinations Insight: + limited insight Judgment: + impaired judgement Vital Signs (Past 24 Hours) Last Vital Signs Temp 36.7 C 12/07/23 06:28 Pulse 57 L 12/07/23 06:28 Resp 16 12/07/23 06:28 BP 95/60 L 12/07/23 06:28 Pulse Ox 99 12/04/23 06:00 O2 Del Method Room Air 12/04/23 06:00 Results & Data ([facility]) Current Inpatient Medications Current Inpatient Medications: Current Inpatient Medications Acetaminophen (Acetaminophen 325 Mg Tab) 650 mg PO Q4H PRN PRN Reason: Headache or Minor Fever Stop: 12/25/23 22:47 Al Hydrox/Mg Hydrox/Simethicone (Aluminum/Magnesium Susp 30 Ml Udc) 30 ml PO Q4H PRN PRN Reason: GI Upset Stop: 12/25/23 22:47 Bismuth Subsalicylate (Bismuth Subsalicylate Liqd 236 Ml) 15 ml PO PRN PRN PRN Reason: Loose Stool Stop: 12/25/23 22:47 Clonazepam (Clonazepam 1 Mg Tab) 1 mg PO HS ASSHA Stop: 12/26/23 21:59 Last Admin: 12/06/23 21:44 Dose: 1 mg Fluoxetine HCl (Fluoxetine Hcl 20 Mg Cap) 40 mg PO QAM SASHA Stop: 12/28/23 08:59 Last Admin: 12/06/23 09:59 Dose: 40 mg Folic Acid (Folic Acid 1 Mg Tab) 1 mg PO QAM SASHA Stop: 05/22/24 08:59 Last Admin: 12/06/23 09:59 Dose: 1 mg Hydroxyzine HCl (Hydroxyzine Hcl 25 Mg Tab) 25 mg PO Q4H PRN PRN Reason: Anxiety Stop: 12/25/23 22:47 [place] Carbonate ([place] Carbonate 300 Mg Tab) 300 mg PO HS [facility] Stop: 12/30/23 20:59 Last Admin: 12/06/23 21:44 Dose: 300 mg Magnesium Hydroxide (Magnesium Hydroxide Susp 30 Ml Udc) 30 ml PO DAILY PRN PRN Reason: Constipation Stop: 12/25/23 22:47 Miscellaneous (Remove Nicoderm Patch) 1 each N/A DAILY@2100 SASHA Stop: 01/02/24 20:59 Last Admin: 12/06/23 21:44 Dose: 1 each Nicotine (Nicotine 21 Mg/24 Hr Tdsy) 1 patch TD QAM SASHA Stop: 12/26/23 08:59 Last Admin: 12/06/23 10:01 Dose: 1 patch Olanzapine (Olanzapine 10 Mg Tab) 10 mg PO HS [facility] Stop: 01/04/24 21:59 Last Admin: 12/06/23 21:44 Dose: 10 mg Sodium Chloride (Sodium Chloride 0.65% Na Soln 45 Ml ([place])) 1 - 2 sprays NA PRN PRN PRN Reason: Nasal Dryness/Congestion Stop: 12/25/23 22:47 Mental Health & Subst Abuse Tx Psychiatrist Name of Psychiatrist: [facility] Psychiatrist's Date Of Appointment With Psychiatric Provider: 12/09/23 Time of Appointment with Psychiatrist: 11:00 AM Psychiatric Appointment Comment: [phone] [id number] Therapist Name of Therapist: [facility] Therapist's Time of Therapist Appointment: Requested to add you to waitlist for therapy. Therapy Appointment Comment: [address] [id number] Post Discharge Appointments Contact Information Discharge Discharge Address: [address] [place], [place] [address] [address]
[2023-12-07] MEDS: ACETAMINOPHEN 325 MG TAB PO PRN (19:18)
--- NOTE | 2023-12-08 08:49 | Psychiatric Progress Note ---
Date of Service December 08, 2023 Impression / Recommendations Impression 43 yo woman with history of recurrent MDD and HIMA admitted for severe depression with inability to function and SI. Severe depression without psychosis has not yet improved, no evidence of denise, some improvement of anxiety. 12/08/2023: Ongoing severe depression but showing signs of starting to show slight response to medication and treatment. Fewer crying spells. Will continue with current regimen. MNPR due to severe anxiety about having a roommate and significant impact on sleep which is main treatment target at this point. Overall, I spent a total of 26 minutes on this case including meeting with the patient, reviewing the chart, nursing report, multidisciplinary team meeting, orders, and documentation. (1) Major depressive disorder, recurrent episode with anxious distress: (2) Insomnia: (3) Suicidal ideations: Plan 12/08/2023: Continue current medications and tx plan. 12/07/2023: Continue current medications and tx plan. 12/06/2023: -Pierz level tomorrow AM -Continue current medications and tx plan 12/05/2023: -Discontinue Doxepin as ineffective and further dose titration raises concern for serotonin syndrome risk -Start olanzapine 10mg HS po 12/04/2023: -Start doxepin 25mg HS po -Discontinue Seroquel 200mg HS 12/03/2023: -Continue current medications and tx plan. 12/02/23: -Seroquel to 200mg moved to Qpm with food -Continue Pierz 300mg HS. For augmentation. -Continue Prozac 40mg PO qam -Continue Suicide precautions 12/01/23: -Lower Seroquel to 200mg HS -Remeron discontinued last night -Pierz started last night at 300mg HS. Will continue without changes for augmentation. -Rest of medications without changes. -Continue Suicide precautions 11/30/23: -Discontinue Benadryl -Rest of medications without changes. -Continue Suicide precautions 11/29/23: -Decrease Seroquel to 400mg po HS -Add Benadryl (in substitution for Hydroxyzine) at 50mg PO PRN HS for insomnia. Due to concerns about antichol rebound from rapid taper of Seroquel -Continue Prozac to 40mg po daily. -Continue rest of medications without changes. -Start B12 IM 1000mcg x one dose now -Monitor mood and sleep pattern 11/28/23: -Continue Prozac to 40mg po daily. -Continue rest of medications without changes -Start B12 IM 1000mcg x one dose now -Monitor mood and sleep pattern 11/27/23: -Increase Prozac to 40mg po daily -Continue rest of medications without changes -Start B12 IM 1000mcg x one dose now -Monitor mood and sleep pattern 11/26/23: -continue Seroquel 600 mg daily, -Discontinue Zoloft, -Continue Prozac at 20 mg, - Schedule Remeron at 7.5 PO QHS (no longer PRN) -Adjust Klonopin to scheduled 05.mg po q4pm and 1mg po qhs (short term use). -Collect B12 level 11/25/23:The patient was admitted to the [facility] ([facility] mental health [facility]) on q15 min checks (behavioral with suicide precautions) for safety. The patient will participate in group, recreational, and milieu therapies and will be offered additional individual and family sessions as clinically appropriate. Inventory Assets Strengths: Prior good response to treatment Good social support General good health Interested in treatment Needs: support during medication changes sleep hygiene education Suicide Risk Level Suicide Risk Level: High-Moderate (q15 min suicide checks) (ongoing severe depression but feels safe in the hospital ) Risk Factors Assessment Do You Have Access To A Gun?: No Mental Health Diagnoses: Yes Previous Psychiatric Hospitalization: Yes Hopelessness: Yes Protective Factors Assessment : Yes Responsible for Young Children: Yes Employed: No (Stopped working 1 month ago due to her mental health.) Stable Relationships: Yes Supportive Family: Yes Interval History Identifying Information Mariana is a 43 yo woman with hx of depression and anxiety, admitted voluntarily due to passive suicidal ideation while undergoing medication changes in the OP setting. Chief Complaint "Yeah the hopelessness is still there". Review of Systems Sleep Information Total Hours of Sleep: 8 Meal Information Percent Meal Consumed - Breakfast: 90 Percent Meal Consumed - Lunch: 100 Percent Meal Consumed - Dinner: 100 Subjective Subjective Patient was seen & assessed and interval progress reviewed with treatment team nursing and social work. Attended all groups last evening. Rated her mood as ho peful last night. Today reports hopelessness but feels her mood has improved a tiny bit. Still feels far from her baseline but notices fewer crying spells. Getting some sleep with the olanzapine which she likes. Denies any medication side effects. Physical Exam Psychiatric Orientation: alert and oriented x 3 Apperance: + disheveled Eye Contact: good eye contact Motor Behavior: no abnormal motor movements Speech: + abnormal rate/rhythm/volume of speech (soft) Affect: + depressed affect Mood: + depressed mood and + anxious mood Thought Process: + circumstantial thought process Thought Content: + cognitive distortions (discounting the positive. ) and + hopelessness Suicidal Thoughts: denies suicidal plan; + reports suicidal thoughts (intermittent) Homicidal Thoughts: denies homicidal thoughts Hallucinations: no auditory hallucinations Insight: + limited insight Judgment: + impaired judgement Vital Signs (Past 24 Hours) Last Vital Signs Temp 37.2 C 12/08/23 06:23 Pulse 60 12/08/23 06:24 Resp 16 12/08/23 06:23 BP 108/71 12/08/23 06:24 Pulse Ox 99 12/08/23 06:23 O2 Del Method Room Air 12/08/23 06:23 Results & Data ([facility]) Laboratory Results Laboratory Results - last 24 hr 12/07/23 08:59 Pierz 0.2 L Current Inpatient Medications Current Inpatient Medications: Current Inpatient Medications Acetaminophen (Acetaminophen 325 Mg Tab) 650 mg PO Q4H PRN PRN Reason: Headache or Minor Fever Stop: 12/25/23 22:47 Last Admin: 12/07/23 19:18 Dose: 650 mg Al Hydrox/Mg Hydrox/Simethicone (Aluminum/Magnesium Susp 30 Ml Udc) 30 ml PO Q4H PRN PRN Reason: GI Upset Stop: 12/25/23 22:47 Bismuth Subsalicylate (Bismuth Subsalicylate Liqd 236 Ml) 15 ml PO PRN PRN PRN Reason: Loose Stool Stop: 12/25/23 22:47 Clonazepam (Clonazepam 1 Mg Tab) 1 mg PO HS SASHA Stop: 12/26/23 21:59 Last Admin: 12/07/23 21:49 Dose: 1 mg Fluoxetine HCl (Fluoxetine Hcl 20 Mg Cap) 40 mg PO QAM [facility]HA Stop: 12/28/23 08:59 Last Admin: 12/07/23 08:50 Dose: 40 mg Folic Acid (Folic Acid 1 Mg Tab) 1 mg PO QAM [facility]HA Stop: 12/28/23 08:59 Last Admin: 12/07/23 08:50 Dose: 1 mg Hydroxyzine HCl (Hydroxyzine Hcl 25 Mg Tab) 25 mg PO Q4H PRN PRN Reason: Anxiety Stop: 12/25/23 22:47 Pierz Carbonate (Pierz Carbonate 300 Mg Tab) 300 mg PO HS [facility] Stop: 12/30/23 20:59 Last Admin: 12/07/23 21:49 Dose: 300 mg Magnesium Hydroxide (Magnesium Hydroxide Susp 30 Ml Udc) 30 ml PO DAILY PRN PRN Reason: Constipation Stop: 12/25/23 22:47 Miscellaneous (Remove Nicoderm Patch) 1 each N/A DAILY@2100 SASHA Stop: 01/02/24 20:59 Last Admin: 12/07/23 21:50 Dose: 1 each Nicotine (Nicotine 21 Mg/24 Hr Tdsy) 1 patch TD QAM [facility]HA Stop: 12/26/23 08:59 Last Admin: 12/07/23 08:49 Dose: 1 patch Olanzapine (Olanzapine 10 Mg Tab) 10 mg PO HS [facility] Stop: 01/04/24 21:59 Last Admin: 12/07/23 21:49 Dose: 10 mg Sodium Chloride (Sodium Chloride 0.65% Na Soln 45 Ml ([place])) 1 - 2 sprays NA PRN PRN PRN Reason: Nasal Dryness/Congestion Stop: 12/25/23 22:47 Mental Health & Subst Abuse Tx Psychiatrist Name of Psychiatrist: [facility] Psychiatrist's Date Of Appointment With Psychiatric Provider: 12/09/23 Time of Appointment with Psychiatrist: 11:00 AM Psychiatric Appointment Comment: [phone] [id number] Therapist Name of Therapist: [facility] Therapist's Time of Therapist Appointment: Requested to add you to waitlist for therapy. Therapy Appointment Comment: [phone] [id number] Post Discharge Appointments Contact Information Discharge Discharge Address: [address] [place], [place] [address] [address]
--- NOTE | 2023-12-09 08:53 | Psychiatric Progress Note ---
Date of Service December 09, 2023 Impression / Recommendations Impression 43 yo woman with history of recurrent MDD and HIMA admitted for severe depression with inability to function and SI. Severe depression without psychosis has not yet improved, no evidence of denise, some improvement of anxiety. 12/09/2023: Ongoing severe depression but showing more gradual progress over the last few days. Concentration seems to be improving a bit as well. No medication side effects, continue current regimen. MNPR due to severe anxiety about having a roommate and significant impact on sleep which is main treatment target at this point. Overall, I spent a total of 24 minutes on this case including meeting with the patient, reviewing the chart, nursing report, multidisciplinary team meeting, orders, and documentation. (1) Major depressive disorder, recurrent episode with anxious distress: (2) Insomnia: (3) Suicidal ideations: Plan 12/09/2023: Continue current medications and tx plan. 12/08/2023: Continue current medications and tx plan. 12/07/2023: Continue current medications and tx plan. 12/06/2023: -[place] level tomorrow AM -Continue current medications and tx plan 12/05/2023: -Discontinue Doxepin as ineffective and further dose titration raises concern for serotonin syndrome risk -Start olanzapine 10mg HS po 12/04/2023: -Start doxepin 25mg HS po -Discontinue Seroquel 200mg HS 12/03/2023: -Continue current medications and tx plan. 12/02/23: -Seroquel to 200mg moved to Qpm with food -Continue [place] 300mg HS. For augmentation. -Continue Prozac 40mg PO qam -Continue Suicide precautions 12/01/23: -Lower Seroquel to 200mg HS -Remeron discontinued last night -[place] started last night at 300mg HS. Will continue without changes for augmentation. -Rest of medications without changes. -Continue Suicide precautions 11/30/23: -Discontinue Benadryl -Rest of medications without changes. -Continue Suicide precautions 11/29/23: -Decrease Seroquel to 400mg po HS -Add Benadryl (in substitution for Hydroxyzine) at 50mg PO PRN HS for insomnia. Due to concerns about antichol rebound from rapid taper of Seroquel -Continue Prozac to 40mg po daily. -Continue rest of medications without changes. -Start B12 IM 1000mcg x one dose now -Monitor mood and sleep pattern 11/28/23: -Continue Prozac to 40mg po daily. -Continue rest of medications without changes -Start B12 IM 1000mcg x one dose now -Monitor mood and sleep pattern 11/27/23: -Increase Prozac to 40mg po daily -Continue rest of medications without changes -Start B12 IM 1000mcg x one dose now -Monitor mood and sleep pattern 11/26/23: -continue Seroquel 600 mg daily, -Discontinue Zoloft, -Continue Prozac at 20 mg, - Schedule Remeron at 7.5 PO QHS (no longer PRN) -Adjust Klonopin to scheduled 05.mg po q4pm and 1mg po qhs (short term use). -Collect B12 level 11/25/23:The patient was admitted to the [facility] ([facility] mental health unit) on q15 min checks (behavioral with suicide precautions) for safety. The patient will participate in group, recreational, and milieu therapies and will be offered additional individual and family sessions as clinically appropriate. Inventory Assets Strengths: Prior good response to treatment Good social support General good health Interested in treatment Needs: support during medication changes sleep hygiene education Suicide Risk Level Suicide Risk Level: High-Moderate (q15 min suicide checks) (ongoing severe depression but feels safe in the hospital ) Risk Factors Assessment Do You Have Access To A Gun?: No Mental Health Diagnoses: Yes Previous Psychiatric Hospitalization: Yes Hopelessness: Yes Protective Factors Assessment : Yes Responsible for Young Children: Yes Employed: No (Stopped working 1 month ago due to her mental health.) Stable Relationships: Yes Supportive Family: Yes Interval History Identifying Information Mariana is a 43 yo woman with hx of depression and anxiety, admitted voluntarily due to passive suicidal ideation while undergoing medication changes in the OP setting. Chief Complaint "Not as sad or crying as much". Review of Systems Sleep Information Total Hours of Sleep: 7.5 Sleep Comments: HS Klonopin and and Zyprexa Meal Information Percent Meal Consumed - Breakfast: 100 Percent Meal Consumed - Lunch: 100 Percent Meal Consumed - Dinner: 100 Subjective Subjective Patient was seen & assessed and interval progress reviewed with treatment team nursing and social work. Good visit with her , disappointed that her son wasn't able to come visit her as planned. Today reports some optimism that her mood is making gradual improvements, noting she is a little less sad and some of her hopelessness is lessening. Denies any medication side effects, likes her current regimen. Reviewed option for CBT-I in the future. Physical Exam Psychiatric Orientation: alert and oriented x 3 Apperance: + disheveled (but less so today) Eye Contact: good eye contact Motor Behavior: no abnormal motor movements Speech: + abnormal rate/rhythm/volume of speech (soft) Affect: + depressed affect Mood: + depressed mood and + anxious mood Thought Process: + circumstantial thought process Thought Content: reality based without delusions and + hopelessness Suicidal Thoughts: denies suicidal plan; + reports suicidal thoughts (intermittent, lessening) Homicidal Thoughts: denies homicidal thoughts Hallucinations: no auditory hallucinations Insight: + limited insight Judgment: + impaired judgement Vital Signs (Past 24 Hours) Last Vital Signs Temp 36.2 C L 12/09/23 05:55 Pulse 67 12/09/23 05:56 Resp 16 12/09/23 05:55 BP 107/67 12/09/23 05:56 Pulse Ox 99 12/08/23 06:23 O2 Del Method Room Air 12/08/23 06:23 Results & Data (U) Current Inpatient Medications Current Inpatient Medications: Current Inpatient Medications Acetaminophen (Acetaminophen 325 Mg Tab) 650 mg PO Q4H PRN PRN Reason: Headache or Minor Fever Stop: 12/25/23 22:47 Last Admin: 12/07/23 19:18 Dose: 650 mg Al Hydrox/Mg Hydrox/Simethicone (Aluminum/Magnesium Susp 30 Ml Udc) 30 ml PO Q4H PRN PRN Reason: GI Upset Stop: 12/25/23 22:47 Bismuth Subsalicylate (Bismuth Subsalicylate Liqd 236 Ml) 15 ml PO PRN PRN PRN Reason: Loose Stool Stop: 12/25/23 22:47 Clonazepam (Clonazepam 1 Mg Tab) 1 mg PO HS SASHA Stop: 12/26/23 21:59 Last Admin: 12/08/23 22:04 Dose: 1 mg Fluoxetine HCl (Fluoxetine Hcl 20 Mg Cap) 40 mg PO QAM [facility]HA Stop: 12/28/23 08:59 Last Admin: 12/08/23 09:33 Dose: 40 mg Folic Acid (Folic Acid 1 Mg Tab) 1 mg PO QAM [facility] Stop: 12/28/23 08:59 Last Admin: 12/08/23 09:33 Dose: 1 mg Hydroxyzine HCl (Hydroxyzine Hcl 25 Mg Tab) 25 mg PO Q4H PRN PRN Reason: Anxiety Stop: 12/25/23 22:47 [place] Carbonate ([place] Carbonate 300 Mg Tab) 300 mg PO HS [facility] Stop: 12/30/23 20:59 Last Admin: 12/08/23 22:04 Dose: 300 mg Magnesium Hydroxide (Magnesium Hydroxide Susp 30 Ml Udc) 30 ml PO DAILY PRN PRN Reason: Constipation Stop: 12/25/23 22:47 Miscellaneous (Remove Nicoderm Patch) 1 each N/A DAILY@2100 [facility] Stop: 01/02/24 20:59 Last Admin: 12/08/23 22:06 Dose: 1 each Nicotine (Nicotine 21 Mg/24 Hr Tdsy) 1 patch TD QAM [facility] Stop: 12/26/23 08:59 Last Admin: 12/08/23 09:33 Dose: 1 patch Olanzapine (Olanzapine 10 Mg Tab) 10 mg PO HS [facility] Stop: 01/04/24 21:59 Last Admin: 12/08/23 22:05 Dose: 10 mg Sodium Chloride (Sodium Chloride 0.65% Na Soln 45 Ml ([place])) 1 - 2 sprays NA PRN PRN PRN Reason: Nasal Dryness/Congestion Stop: 12/25/23 22:47 Mental Health & Subst Abuse Tx Psychiatrist Name of Psychiatrist: [facility] Psychiatrist's Date Of Appointment With Psychiatric Provider: 12/16/2023 Time of Appointment with Psychiatrist: 8:30am Psychiatric Appointment Comment: [phone] [id number] Therapist Name of Therapist: [facility] Therapist's Time of Therapist Appointment: Requested to add you to waitlist for therapy. Therapy Appointment Comment: [address] [id number] Post Discharge Appointments Contact Information Discharge Discharge Address: [address] [place], [place] [address] [address]
--- NOTE | 2023-12-10 10:02 | Psychiatric Progress Note ---
Date of Service December 10, 2023 Impression / Recommendations Impression 43 yo woman with history of recurrent MDD and HIMA admitted for severe depression with inability to function and SI. Severe depression without psychosis has not yet improved, no evidence of denise, some improvement of anxiety. 12/10/2023: Ongoing depression, reports improved sleep maintenance and onset since admission. Reports multiple post MDEs and then stable on sertraline for 18 yrs. Last and 4th episode Jul 2022 and rated at severe. Seroquel augmentation was initially effective but then effect wore off. Denies current panic symptoms, and endorses an improved outlook. We discussed medication regimen and expectations. Overall, I spent a total of 30 minutes on this case including meeting with the patient, reviewing the chart, nursing report, multidisciplinary team meeting, orders, and documentation. (1) Major depressive disorder, recurrent episode with anxious distress: (2) Insomnia: (3) Suicidal ideations: Plan 12/10/2023: Continue current medications and tx plan. Encourage fluid intake. 12/09/2023: Continue current medications and tx plan. 12/08/2023: Continue current medications and tx plan. 12/07/2023: Continue current medications and tx plan. 12/06/2023: -Victoria Vera level tomorrow AM -Continue current medications and tx plan 12/05/2023: -Discontinue Doxepin as ineffective and further dose titration raises concern for serotonin syndrome risk -Start olanzapine 10mg HS po 12/04/2023: -Start doxepin 25mg HS po -Discontinue Seroquel 200mg HS 12/03/2023: -Continue current medications and tx plan. 12/02/23: -Seroquel to 200mg moved to Qpm with food -Continue Victoria Vera 300mg HS. For augmentation. -Continue Prozac 40mg PO qam -Continue Suicide precautions 12/01/23: -Lower Seroquel to 200mg HS -Remeron discontinued last night -Victoria Vera started last night at 300mg HS. Will continue without changes for augmentation. -Rest of medications without changes. -Continue Suicide precautions 11/30/23: -Discontinue Benadryl -Rest of medications without changes. -Continue Suicide precautions 11/29/23: -Decrease Seroquel to 400mg po HS -Add Benadryl (in substitution for Hydroxyzine) at 50mg PO PRN HS for insomnia. Due to concerns about antichol rebound from rapid taper of Seroquel -Continue Prozac to 40mg po daily. -Continue rest of medications without changes. -Start B12 IM 1000mcg x one dose now -Monitor mood and sleep pattern 11/28/23: -Continue Prozac to 40mg po daily. -Continue rest of medications without changes -Start B12 IM 1000mcg x one dose now -Monitor mood and sleep pattern 11/27/23: -Increase Prozac to 40mg po daily -Continue rest of medications without changes -Start B12 IM 1000mcg x one dose now -Monitor mood and sleep pattern 11/26/23: -continue Seroquel 600 mg daily, -Discontinue Zoloft, -Continue Prozac at 20 mg, - Schedule Remeron at 7.5 PO QHS (no longer PRN) -Adjust Klonopin to scheduled 05.mg po q4pm and 1mg po qhs (short term use). -Collect B12 level 11/25/23:The patient was admitted to the [facility] ([facility] mental health unit) on q15 min checks (behavioral with suicide precautions) for safety. The patient will participate in group, recreational, and milieu therapies and will be offered additional individual and family sessions as clinically appropriate. Inventory Assets Strengths: Prior good response to treatment Good social support General good health Interested in treatment Needs: support during medication changes sleep hygiene education Suicide Risk Level Suicide Risk Level: High-Moderate (q15 min suicide checks) (ongoing severe depression but feels safe in the hospital ) Risk Factors Assessment Do You Have Access To A Gun?: No Mental Health Diagnoses: Yes Previous Psychiatric Hospitalization: Yes Hopelessness: Yes Protective Factors Assessment : Yes Responsible for Young Children: Yes Employed: No (Stopped working 1 month ago due to her mental health.) Stable Relationships: Yes Supportive Family: Yes Interval History Identifying Information Mariana is a 43 yo woman with hx of depression and anxiety, admitted voluntarily due to passive suicidal ideation while undergoing medication changes in the OP setting. Chief Complaint "[]". Review of Systems Sleep Information Total Hours of Sleep: 7 Sleep Comments: HS Klonopin and and Zyprexa Meal Information Percent Meal Consumed - Breakfast: 100 Percent Meal Consumed - Lunch: 100 Percent Meal Consumed - Dinner: 100 Subjective Subjective Patient was seen & assessed and interval progress reviewed with [treatment team] [nursing and social work] Physical Exam Mental Examination Appearance: Well Groomed Eye Contact: Maintains Eye Contact Motor Behavior: Unremarkable Speech: Normal Mood: Calm Affect: Calm and Flat Thought Process: Intact Hallucinations: None Insight: Fair Judgement: Fair Psychiatric Orientation: alert and oriented x 3 Apperance: appropriately dressed, appropriately groomed, + disheveled (slightly disheveled) and appeared stated age Eye Contact: good eye contact Motor Behavior: steady gait and station and no abnormal motor movements Speech: + abnormal rate/rhythm/volume of speech (soft) Affect: + depressed affect, + anxious affect (less anxious than before) and + flat affect "ok" Thought Process: goal directed thought process and + circumstantial thought process Thought Content: + cognitive distortions (discounting the positive. ), reality based without delusions and + hopelessness; not paranoid and no delusions Suicidal Thoughts: denies suicidal plan and denies suicidal intent; + reports suicidal thoughts (intermittent, lessening) Homicidal Thoughts: denies homicidal thoughts Hallucinations: no auditory hallucinations Cognition: attention grossly intact and language grossly intact Estimated Intelligence: average estimated intelligence Insight: + limited insight improving Judgment: + fair judgement Vital Signs (Past 24 Hours) Last Vital Signs Temp 36.6 C 12/10/23 06:27 Pulse 76 12/10/23 06:30 Resp 16 12/10/23 06:27 BP 94/60 L 12/10/23 06:30 Pulse Ox 99 12/08/23 06:23 O2 Del Method Room Air 12/08/23 06:23 Results & Data ([facility]) Current Inpatient Medications Current Inpatient Medications: Current Inpatient Medications Acetaminophen (Acetaminophen 325 Mg Tab) 650 mg PO Q4H PRN PRN Reason: Headache or Minor Fever Stop: 12/25/23 22:47 Last Admin: 12/09/23 20:15 Dose: 650 mg Al Hydrox/Mg Hydrox/Simethicone (Aluminum/Magnesium Susp 30 Ml Udc) 30 ml PO Q4H PRN PRN Reason: GI Upset Stop: 12/25/23 22:47 Bismuth Subsalicylate (Bismuth Subsalicylate Liqd 236 Ml) 15 ml PO PRN PRN PRN Reason: Loose Stool Stop: 12/25/23 22:47 Clonazepam (Clonazepam 1 Mg Tab) 1 mg PO HS [facility] Stop: 12/26/23 21:59 Last Admin: 12/09/23 22:11 Dose: 1 mg Fluoxetine HCl (Fluoxetine Hcl 20 Mg Cap) 40 mg PO QAM [facility] Stop: 12/28/23 08:59 Last Admin: 12/10/23 09:10 Dose: 40 mg Folic Acid (Folic Acid 1 Mg Tab) 1 mg PO QAM [facility] Stop: 12/28/23 08:59 Last Admin: 12/10/23 09:10 Dose: 1 mg Hydroxyzine HCl (Hydroxyzine Hcl 25 Mg Tab) 25 mg PO Q4H PRN PRN Reason: Anxiety Stop: 12/25/23 22:47 Victoria Vera Carbonate (Victoria Vera Carbonate 300 Mg Tab) 300 mg PO [facility] Stop: 12/30/23 20:59 Last Admin: 12/09/23 22:11 Dose: 300 mg Magnesium Hydroxide (Magnesium Hydroxide Susp 30 Ml Udc) 30 ml PO DAILY PRN PRN Reason: Constipation Stop: 12/25/23 22:47 Miscellaneous (Remove Nicoderm Patch) 1 each N/A DAILY@2100 [facility] Stop: 01/02/24 20:59 Last Admin: 12/09/23 22:12 Dose: 1 each Nicotine (Nicotine 21 Mg/24 Hr Tdsy) 1 patch TD [facility] Stop: 12/26/23 08:59 Last Admin: 12/10/23 09:09 Dose: 1 patch Olanzapine (Olanzapine 10 Mg Tab) 10 mg PO HS [facility] Stop: 01/04/24 21:59 Last Admin: 12/09/23 22:11 Dose: 10 mg Sodium Chloride (Sodium Chloride 0.65% Na Soln 45 Ml ([place])) 1 - 2 sprays NA PRN PRN PRN Reason: Nasal Dryness/Congestion Stop: 12/25/23 22:47 Mental Health & Subst Abuse Tx Psychiatrist Name of Psychiatrist: [facility] Psychiatrist's Date Of Appointment With Psychiatric Provider: 12/16/2023 Time of Appointment with Psychiatrist: 8:30am Psychiatric Appointment Comment: Michele Flynn. [place] [id number] Therapist Name of Therapist: [facility] Therapist's Time of Therapist Appointment: Requested to add you to waitlist for therapy. Therapy Appointment Comment: Michele Flynn. [place] [id number] Post Discharge Appointments Contact Information Discharge Discharge Address: [address] [place] [address], [place] [id number]
--- NOTE | 2023-12-11 11:57 | Psychiatric Progress Note ---
Date of Service December 11, 2023 Impression / Recommendations Impression 43 yo woman with history of recurrent MDD and HIMA admitted for severe depression with inability to function and SI. Severe depression without psychosis has not yet improved, no evidence of denise, some improvement of anxiety. 12/11/2023: Ongoing depression, with improvements in sleep, reactivity, and outlook. Pt wants to maintain current regimen given improvement. Demonstrating future oriented thinking wanting to return to care of her children and work. Continues to appear depressed and anxious with restless behaviors, however more reactive today. Overall, I spent a total of 30 minutes on this case including meeting with the patient, reviewing the chart, nursing report, multidisciplinary team meeting, orders, and documentation. (1) Major depressive disorder, recurrent episode with anxious distress: (2) Insomnia: Plan 12/11/2023: Continue current medications and tx plan. 12/10/2023: Continue current medications and tx plan. 12/09/2023: Continue current medications and tx plan. 12/08/2023: Continue current medications and tx plan. 12/07/2023: Continue current medications and tx plan. 12/06/2023: -Level Green level tomorrow AM -Continue current medications and tx plan 12/05/2023: -Discontinue Doxepin as ineffective and further dose titration raises concern for serotonin syndrome risk -Start olanzapine 10mg HS po 12/04/2023: -Start doxepin 25mg HS po -Discontinue Seroquel 200mg HS 12/03/2023: -Continue current medications and tx plan. 12/02/23: -Seroquel to 200mg moved to Qpm with food -Continue Level Green 300mg HS. For augmentation. -Continue Prozac 40mg PO qam -Continue Suicide precautions 12/01/23: -Lower Seroquel to 200mg HS -Remeron discontinued last night -Level Green started last night at 300mg HS. Will continue without changes for augmentation. -Rest of medications without changes. -Continue Suicide precautions 11/30/23: -Discontinue Benadryl -Rest of medications without changes. -Continue Suicide precautions 11/29/23: -Decrease Seroquel to 400mg po HS -Add Benadryl (in substitution for Hydroxyzine) at 50mg PO PRN HS for insomnia. Due to concerns about antichol rebound from rapid taper of Seroquel -Continue Prozac to 40mg po daily. -Continue rest of medications without changes. -Start B12 IM 1000mcg x one dose now -Monitor mood and sleep pattern 11/28/23: -Continue Prozac to 40mg po daily. -Continue rest of medications without changes -Start B12 IM 1000mcg x one dose now -Monitor mood and sleep pattern 11/27/23: -Increase Prozac to 40mg po daily -Continue rest of medications without changes -Start B12 IM 1000mcg x one dose now -Monitor mood and sleep pattern 11/26/23: -continue Seroquel 600 mg daily, -Discontinue Zoloft, -Continue Prozac at 20 mg, - Schedule Remeron at 7.5 PO QHS (no longer PRN) -Adjust Klonopin to scheduled 05.mg po q4pm and 1mg po qhs (short term use). -Collect B12 level 11/25/23:The patient was admitted to the [facility]) on q15 min checks (behavioral with suicide precautions) for safety. The patient will participate in group, recreational, and milieu therapies and will be offered additional individual and family sessions as clinically appropriate. Inventory Assets Strengths: Prior good response to treatment Good social support General good health Interested in treatment Needs: support during medication changes sleep hygiene education Suicide Risk Level Suicide Risk Level: High-Moderate (q15 min suicide checks) (ongoing severe depression but feels safe in the hospital ) Risk Factors Assessment Do You Have Access To A Gun?: No Mental Health Diagnoses: Yes Previous Psychiatric Hospitalization: Yes Hopelessness: Yes Protective Factors Assessment : Yes Responsible for Young Children: Yes Employed: No (Stopped working 1 month ago due to her mental health.) Stable Relationships: Yes Supportive Family: Yes Interval History Identifying Information Mariana is a 43 yo woman with hx of depression and anxiety, admitted voluntarily due to passive suicidal ideation while undergoing medication changes in the OP setting. Chief Complaint "[]". Review of Systems Sleep Information Total Hours of Sleep: 6.5 Sleep Comments: HS Klonopin and and Zyprexa Meal Information Percent Meal Consumed - Breakfast: 100 Percent Meal Consumed - Lunch: 100 Percent Meal Consumed - Dinner: 100 Subjective Subjective Patient was seen & assessed and interval progress reviewed with nursing and social work She reports want to live for her kids and is excited to see them against. 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 Feels her mood is better, is "rested", and has an improved outlook. Discussed dose reduction of Zyprexa today and wants to maintain dose given her positive sleep. Denies suicidal ideation. Physical Exam Mental Examination Appearance: Well Groomed Eye Contact: Maintains Eye Contact Motor Behavior: Unremarkable Speech: Normal Mood: Calm Affect: Calm and Flat Thought Process: Intact Hallucinations: None Insight: Fair Judgement: Fair Psychiatric Orientation: alert and oriented x 3 Apperance: appropriately dressed, appropriately groomed, + disheveled (slightly disheveled) and appeared stated age Eye Contact: good eye contact Motor Behavior: steady gait and station (restless and fidgety at times) Speech: + abnormal rate/rhythm/volume of speech (soft) Affect: + anxious affect (less anxious than before) and + constricted affect more reactive today "good" Thought Process: goal directed thought process and + circumstantial thought process Thought Content: + cognitive distortions (discounting the positive. ) and + hopelessness Suicidal Thoughts: denies suicidal plan and denies suicidal intent; + reports suicidal thoughts (intermittent, lessening) Homicidal Thoughts: denies homicidal thoughts Hallucinations: no auditory hallucinations Cognition: attention grossly intact and language grossly intact Estimated Intelligence: average estimated intelligence Insight: + limited insight Judgment: + impaired judgement Vital Signs (Past 24 Hours) Last Vital Signs Temp 36.8 C 12/11/23 06:30 Pulse 69 12/11/23 06:31 Resp 16 12/11/23 06:30 BP 113/76 12/11/23 06:31 Pulse Ox 99 12/08/23 06:23 O2 Del Method Room Air 12/08/23 06:23 Results & Data ([facility]) Current Inpatient Medications Current Inpatient Medications: Current Inpatient Medications Acetaminophen (Acetaminophen 325 Mg Tab) 650 mg PO Q4H PRN PRN Reason: Headache or Minor Fever Stop: 12/25/23 22:47 Last Admin: 12/09/23 20:15 Dose: 650 mg Al Hydrox/Mg Hydrox/Simethicone (Aluminum/Magnesium Susp 30 Ml Udc) 30 ml PO Q4H PRN PRN Reason: GI Upset Stop: 12/25/23 22:47 Bismuth Subsalicylate (Bismuth Subsalicylate Liqd 236 Ml) 15 ml PO PRN PRN PRN Reason: Loose Stool Stop: 12/25/23 22:47 Clonazepam (Clonazepam 1 Mg Tab) 1 mg PO [facility] Stop: 12/26/23 21:59 Last Admin: 12/10/23 21:42 Dose: 1 mg Fluoxetine HCl (Fluoxetine Hcl 20 Mg Cap) [facility] Stop: 12/28/23 08:59 Last Admin: 12/11/23 09:17 Dose: 40 mg Folic Acid (Folic Acid 1 Mg Tab) 1 mg PO QAM [facility] Stop: 12/28/23 08:59 Last Admin: 12/11/23 09:18 Dose: 1 mg Hydroxyzine HCl (Hydroxyzine Hcl 25 Mg Tab) 25 mg PO Q4H PRN PRN Reason: Anxiety Stop: 12/25/23 22:47 Level Green Carbonate (Level Green Carbonate 300 Mg Tab) 300 mg PO [facility] Stop: 12/30/23 20:59 Last Admin: 12/10/23 21:43 Dose: 300 mg Magnesium Hydroxide (Magnesium Hydroxide Susp 30 Ml Udc) 30 ml PO DAILY PRN PRN Reason: Constipation Stop: 12/25/23 22:47 Miscellaneous (Remove Nicoderm Patch) 1 each N/A DAILY@2100 [facility] Stop: 01/02/24 20:59 Last Admin: 12/10/23 21:45 Dose: 1 each Nicotine (Nicotine 21 Mg/24 Hr Tdsy) 1 patch [facility] Stop: 12/26/23 08:59 Last Admin: 12/11/23 09:19 Dose: 1 patch Olanzapine (Olanzapine 10 Mg Tab) 10 mg PO [facility] Stop: 01/04/24 21:59 Last Admin: 12/10/23 21:43 Dose: 10 mg Sodium Chloride (Sodium Chloride 0.65% Na Soln 45 Ml ([place])) 1 - 2 sprays NA PRN PRN PRN Reason: Nasal Dryness/Congestion Stop: 12/25/23 22:47 Mental Health & Subst Abuse Tx Psychiatrist Name of Psychiatrist: [facility] Psychiatrist's Date Of Appointment With Psychiatric Provider: 12/16/2023 Time of Appointment with Psychiatrist: 8:30am Psychiatric Appointment Comment: [place] [id number] Therapist Name of Therapist: [facility] Therapist's Time of Therapist Appointment: Requested to add you to waitlist for therapy. Therapy Appointment Comment: Michele Flynn. [place] [id number] Post Discharge Appointments Contact Information Discharge Discharge Address: [address] [place] [address], [place] [id number]
--- NOTE | 2023-12-12 11:30 | Psychiatric Progress Note ---
Date of Service December 12, 2023 Impression / Recommendations Impression 43 yo woman with history of recurrent MDD and HIMA admitted for severe depression with inability to function and SI. Severe depression without psychosis has not yet improved, no evidence of denise, some improvement of anxiety. 12/11/2023: Ongoing depression, with improvements in sleep, reactivity, and outlook. Pt wants to maintain current regimen given improvement. Demonstrating future oriented thinking wanting to return to care of her children and work. Continues to appear depressed and anxious with restless behaviors, however more reactive today. Presenting difficulty making a clear future plan; will continue to develop. Overall, I spent a total of 30 minutes on this case including meeting with the patient, reviewing the chart, nursing report, multidisciplinary team meeting, orders, and documentation. (1) Major depressive disorder, recurrent episode with anxious distress: (2) Insomnia: Plan 12/12/2023: Continue current medications and tx plan. 12/11/2023: Continue current medications and tx plan. 12/10/2023: Continue current medications and tx plan. 12/09/2023: Continue current medications and tx plan. 12/08/2023: Continue current medications and tx plan. 12/07/2023: Continue current medications and tx plan. 12/06/2023: -Acworth level tomorrow AM -Continue current medications and tx plan 12/05/2023: -Discontinue Doxepin as ineffective and further dose titration raises concern for serotonin syndrome risk -Start olanzapine 10mg HS po 12/04/2023: -Start doxepin 25mg HS po -Discontinue Seroquel 200mg HS 12/03/2023: -Continue current medications and tx plan. 12/02/23: -Seroquel to 200mg moved to Qpm with food -Continue Acworth 300mg HS. For augmentation. -Continue Prozac 40mg PO qam -Continue Suicide precautions 12/01/23: -Lower Seroquel to 200mg HS -Remeron discontinued last night -Acworth started last night at 300mg HS. Will continue without changes for augmentation. -Rest of medications without changes. -Continue Suicide precautions 11/30/23: -Discontinue Benadryl -Rest of medications without changes. -Continue Suicide precautions 11/29/23: -Decrease Seroquel to 400mg po HS -Add Benadryl (in substitution for Hydroxyzine) at 50mg PO PRN HS for insomnia. Due to concerns about antichol rebound from rapid taper of Seroquel -Continue Prozac to 40mg po daily. -Continue rest of medications without changes. -Start B12 IM 1000mcg x one dose now -Monitor mood and sleep pattern 11/28/23: -Continue Prozac to 40mg po daily. -Continue rest of medications without changes -Start B12 IM 1000mcg x one dose now -Monitor mood and sleep pattern 11/27/23: -Increase Prozac to 40mg po daily -Continue rest of medications without changes -Start B12 IM 1000mcg x one dose now -Monitor mood and sleep pattern 11/26/23: -continue Seroquel 600 mg daily, -Discontinue Zoloft, -Continue Prozac at 20 mg, - Schedule Remeron at 7.5 PO QHS (no longer PRN) -Adjust Klonopin to scheduled 05.mg po q4pm and 1mg po qhs (short term use). -Collect B12 level 11/25/23:The patient was admitted to the [facility] ([facility]) on q15 min checks (behavioral with suicide precautions) for safety. The patient will participate in group, recreational, and milieu therapies and will be offered additional individual and family sessions as clinically appropriate. Inventory Assets Strengths: Prior good response to treatment Good social support General good health Interested in treatment Needs: support during medication changes sleep hygiene education Suicide Risk Level Suicide Risk Level: High-Moderate (q15 min suicide checks) (ongoing severe depression but feels safe in the hospital ) Risk Factors Assessment Do You Have Access To A Gun?: No Mental Health Diagnoses: Yes Previous Psychiatric Hospitalization: Yes Hopelessness: Yes Protective Factors Assessment : Yes Responsible for Young Children: Yes Employed: No (Stopped working 1 month ago due to her mental health.) Stable Relationships: Yes Supportive Family: Yes Interval History Identifying Information Mariana is a 43 yo woman with hx of depression and anxiety, admitted voluntarily due to passive suicidal ideation while undergoing medication changes in the OP setting. Chief Complaint "[didn't sleep well last night]". Review of Systems Sleep Information Total Hours of Sleep: 7.5 Sleep Comments: HS Klonopin and and Zyprexa Meal Information Percent Meal Consumed - Breakfast: 100 Percent Meal Consumed - Lunch: 100 Percent Meal Consumed - Dinner: 100 Subjective Subjective Patient was seen & assessed and interval progress reviewed with treatment team nursing and social work Overnight no acute events. Poor sleep noted. Vitals stable. Pt reports not sleeping well last night. Denies any anxious ruminations. Slept well the night before. Smiling and friendly during the exam. Reports wanting to go home but unsure when is the right time. works from home and she claims he is a good support. Denies SI, HI, AVH. Tolerating medications well. Physical Exam Mental Examination Appearance: Well Groomed Eye Contact: Maintains Eye Contact Motor Behavior: Unremarkable Speech: Normal Mood: Calm Affect: Calm and Flat Thought Process: Intact Hallucinations: None Insight: Fair Judgement: Fair Psychiatric Orientation: alert and oriented x 3 Apperance: appropriately dressed, appropriately groomed, + disheveled (slightly disheveled) and appeared stated age Eye Contact: good eye contact Motor Behavior: steady gait and station (restless and fidgety at times) and no abnormal motor movements Speech: + abnormal rate/rhythm/volume of speech (soft) Affect: + anxious affect (less anxious than before), + flat affect and + constricted affect more reactive today "good" Thought Process: goal directed thought process and + circumstantial thought process Thought Content: + cognitive distortions (discounting the positive. ) and reality based without delusions; not paranoid and no delusions Suicidal Thoughts: denies suicidal plan and denies suicidal intent; + reports suicidal thoughts (intermittent, lessening) Homicidal Thoughts: denies homicidal thoughts Hallucinations: no auditory hallucinations Cognition: attention grossly intact and language grossly intact Estimated Intelligence: average estimated intelligence Insight: + limited insight (improving) Judgment: + fair judgement Vital Signs (Past 24 Hours) Last Vital Signs Temp 36.7 C 12/12/23 06:36 Pulse 62 12/12/23 06:36 Resp 16 12/12/23 06:36 BP 95/61 L 12/12/23 06:36 Pulse Ox 99 12/08/23 06:23 O2 Del Method Room Air 12/08/23 06:23 Results & Data ([facility]) Current Inpatient Medications Current Inpatient Medications: Current Inpatient Medications Acetaminophen (Acetaminophen 325 Mg Tab) 650 mg PO Q4H PRN PRN Reason: Headache or Minor Fever Stop: 12/25/23 22:47 Last Admin: 12/09/23 20:15 Dose: 650 mg Al Hydrox/Mg Hydrox/Simethicone (Aluminum/Magnesium Susp 30 Ml Udc) 30 ml PO Q4H PRN PRN Reason: GI Upset Stop: 12/25/23 22:47 Bismuth Subsalicylate (Bismuth Subsalicylate Liqd 236 Ml) 15 ml PO PRN PRN PRN Reason: Loose Stool Stop: 12/25/23 22:47 Clonazepam (Clonazepam 1 Mg Tab) 1 mg PO [facility] Stop: 12/26/23 21:59 Last Admin: 12/11/23 21:58 Dose: 1 mg Fluoxetine HCl (Fluoxetine Hcl 20 Mg Cap) [facility] Stop: 12/28/23 08:59 Last Admin: 12/12/23 09:02 Dose: 40 mg Folic Acid (Folic Acid 1 Mg Tab) [facility] Stop: 12/28/23 08:59 Last Admin: 12/12/23 09:02 Dose: 1 mg Hydroxyzine HCl (Hydroxyzine Hcl 25 Mg Tab) 25 mg PO Q4H PRN PRN Reason: Anxiety Stop: 12/25/23 22:47 Acworth Carbonate (Acworth Carbonate 300 Mg Tab) 300 mg PO [facility] Stop: 12/30/23 20:59 Last Admin: 12/11/23 21:58 Dose: 300 mg Magnesium Hydroxide (Magnesium Hydroxide Susp 30 Ml Udc) 30 ml PO DAILY PRN PRN Reason: Constipation Stop: 12/25/23 22:47 Miscellaneous (Remove Nicoderm Patch) 1 each N/A DAILY@2100 [facility] Stop: 01/02/24 20:59 Last Admin: 12/11/23 21:59 Dose: 1 each Nicotine (Nicotine 21 Mg/24 Hr Tdsy) 1 patch TD QAM [facility] Stop: 12/26/23 08:59 Last Admin: 12/12/23 09:02 Dose: 1 patch Olanzapine (Olanzapine 10 Mg Tab) 10 mg PO [facility] Stop: 01/04/24 21:59 Last Admin: 12/11/23 21:58 Dose: 10 mg Sodium Chloride (Sodium Chloride 0.65% Na Soln 45 Ml ([place])) 1 - 2 sprays NA PRN PRN PRN Reason: Nasal Dryness/Congestion Stop: 12/25/23 22:47 Mental Health & Subst Abuse Tx Psychiatrist Name of Psychiatrist: [facility] Psychiatrist's Date Of Appointment With Psychiatric Provider: 12/16/2023 Time of Appointment with Psychiatrist: 8:30am Psychiatric Appointment Comment: [phone] [id number] Therapist Name of Therapist: [facility] Therapist's Time of Therapist Appointment: Requested to add you to waitlist for therapy. Therapy Appointment Comment: [address] [place] [id number] Post Discharge Appointments Contact Information Discharge Discharge Address: [address] [place], [place] [address] [address]
--- NOTE | 2023-12-12 13:02 | Discharge Summary ---
Date of Service December 12, 2023 History of Present Illness Ms. Garcia is a 43-year-old female with history of depression she presented to the emergency department complaining of passive suicidal ideations. Ms. Garcia explained that her first episode of depression occurred after her second the depression started in the . Since then she has had 5 separate episodes of depression. The current episode of depression started around 2 months ago without any specific trigger. Last year during a depressed young episode she required an admission to [facility] and was treated with Seroquel the medication was started at 50 mg and titrated up to 100 mg. Ms. Garcia stated that after the addition of Seroquel she felt better and continued the medication combined with Zoloft until two months ago. When the new symptoms started her doctor started try titrating up Seroquel; she is currently taking 600 mg. Her doctor recommended first try trading Zoloft with Prozac. At this point Ms. Garcia is taking 50 mg of Zoloft and 20 mg of Prozac. She was also prescribed trazodone Klonopin and Remeron as needed to help with insomnia. During our session today Ms. Garcia explained that despite all the sedating medications she is still unable to sleep. She has been unable to sleep for the last 3 days and feels that this is causing an impact in her thinking process. She feels her thoughts are foggy and has poor concentration. During the daytime she feels tired and unable to function at home or at work. Ms. Garcia stopped going to work because of this symptoms. She has staying in bed longer hours during the daytime due to feeling fatigued. Upon questioning for other possible symptoms, Ms. Garcia mentioned having panic episodes. When asked to describe them she explained that she wakes up in the morning feeling tingling sensation all over her body she denied having increased heart rate sweats nausea or other typical symptoms of panic. Ms. Garcia has a fairly normal physical exam but exhibits angular cheilitis, a sign of vitamin B deficiency. This added to the tingling sensation and memory problems (subjective) warrant the need for a B12 level assessment. Physical Exam Mental Examination Appearance: Well Groomed Eye Contact: Maintains Eye Contact Motor Behavior: Unremarkable Speech: Normal Mood: Calm Affect: Calm and Flat Thought Process: Intact Hallucinations: None Insight: Fair Judgement: Fair Psychiatric Orientation: alert and oriented x 3 Apperance: appropriately dressed, appropriately groomed, + disheveled (slightly disheveled) and appeared stated age Eye Contact: good eye contact Motor Behavior: steady gait and station and no abnormal motor movements Speech: + abnormal rate/rhythm/volume of speech (soft) Affect: euthymic affect (reactive) Thought Process: goal directed thought process and + circumstantial thought process Suicidal Thoughts: denies suicidal thoughts (intermittent, lessening), denies suicidal plan and denies suicidal intent Homicidal Thoughts: denies homicidal thoughts Hallucinations: no auditory hallucinations Cognition: attention grossly intact and language grossly intact Estimated Intelligence: average estimated intelligence Insight: + fair insight Judgment: + fair judgement Vital Signs (Past 24 Hours) Last Vital Signs Temp 36.7 C 12/12/23 12:41 Pulse 68 12/12/23 12:41 Resp 16 12/12/23 12:41 BP 92/60 L 12/12/23 12:41 Pulse Ox 99 12/12/23 12:41 O2 Del Method Room Air 12/08/23 06:23 Principal Diagnosis Major depressive disorder, recurrent episode with anxious distress Psychiatric Data See daily stay summary. In short, safety was maintained and the patient was cooperative with care. Medication changes included discontinuing sertraline and start Fluoxetine to 40mg QAM, starting folate and B12 supplement, discontinuing Mirtazapine and Seroquel, Starting Red Devil 300mg HS and Olanzapine 10mg HS, and reducing Clonazepam to 1mg nightly only and they tolerated this well. A safety plan was completed prior to discharge. Day of Discharge Assessment Today the patient voices readiness for discharge. They note improvement in mood and deny thoughts to harm self or others. Thoughts remain organized and they are improved from admission. There is no evidence of psychosis. They agree to take mediations as prescribed and keep follow-up appointments. They are stable for discharge to outpatient level of care. Transition of Care Transition Of Care Record: was reviewed with the patient Advance Directives Advance Directives Information Provided: Yes Advance Directives: No Mental Health Advance Directive: No Advance Directives on File: No Living Will: No Power of Roofing Tile Sorter: No Advance Directives Reason:: Declines as Mental Health Visit. Risk Factors Assessment Do You Have Access To A Gun?: No Mental Health Diagnoses: Yes Previous Psychiatric Hospitalization: Yes Hopelessness: Yes Protective Factors Assessment : Yes Responsible for Young Children: Yes Employed: No (Stopped working 1 month ago due to her mental health.) Stable Relationships: Yes Supportive Family: Yes Tobacco Cessation at Discharge Tobacco Cessation Medication Prescribed at Discharge: Offered & Prescribed Practical counseling provided including: developing coping skills and providing basic information about quitting Tobacco Cessation Outpatient Followup: Referral for outpatient treatment offered and refused Total Time Total Time Spent: Greater Than 30 Minutes Total Time Includes: Examination of the patient, Discharge Planning and Medication Reconciliation Discharge Data Lab Results 11/25/23 11/25/23 11/26/23 17:57 18:05 18:09 WBC 7.63 RBC 4.97 Hgb 16.5 H Hct 47.4 H MCV 95.4 MCH 33.2 MCHC 34.8 RDW Std Deviation 40.6 RDW Coeff of Brynn 11.8 Plt Count 284 MPV 9.7 Immature Gran % (Auto) 0.4 Neut % (Auto) 70.9 Lymph % (Auto) 19.4 [place] % (Auto) 6.3 Eos % (Auto) 2.2 Baso % (Auto) 0.8 Neut # (Auto) 5.41 Lymph # (Auto) 1.48 [place] # (Auto) 0.48 Eos # (Auto) 0.17 Baso # (Auto) 0.06 Immature Gran # (Auto) 0.03 Sodium 139 Potassium 3.8 Chloride 105 Carbon Dioxide 27 Anion Gap 7 BUN 10 Creatinine 0.79 Est Cr Clr Drug Dosing 77.4 Est GFR ( Amer) 105.5 Est GFR (Non-Af Amer) 91.0 BUN/Creatinine Ratio 12.7 Glucose 112 H Calcium 9.4 Total Bilirubin 0.3 AST 14 ALT 9 Alkaline Phosphatase 58 Total Protein 7.3 Albumin 4.5 Globulin 2.8 Albumin/Globulin Ratio 1.6 Vitamin B12 212 TSH 3.732 HCG, Qual Negative Urine Color Yellow Urine Appearance Clear Urine pH 6.0 Ur Specific [place] 1.004 Urine Protein Negative Urine Glucose (UA) Negative Urine Ketones Negative Urine Blood Negative Urine Nitrite Negative Urine Bilirubin Negative Urine Urobilinogen Negative Ur Leukocyte Esterase Negative Salicylates < 3.0 L Urine Opiates Screen Neg Ur Methadone, Qual Neg Acetaminophen < 3 L Urine Barbiturates Neg Ur Phencyclidine (PCP) Neg U Amphetamin/Meth Scrn Neg MDMA (Ecstasy) Screen Neg U Benzodiazepines Scrn Neg Red Devil Ur Cocaine Metabolite Neg U Marijuana (THC) Screen Neg Ethyl Alcohol mg/dL < 10.0 SARS-CoV-2, RNA, NAAT NEGATIVE 12/07/23 08:59 WBC RBC Hgb Hct MCV MCH MCHC RDW Std Deviation RDW Coeff of Brynn Plt Count MPV Immature Gran % (Auto) Neut % (Auto) Lymph % (Auto) [place] % (Auto) Eos % (Auto) Baso % (Auto) Neut # (Auto) Lymph # (Auto) [place] # (Auto) Eos # (Auto) Baso # (Auto) Immature Gran # (Auto) Sodium Potassium Chloride Carbon Dioxide Anion Gap BUN Creatinine Est Cr Clr Drug Dosing Est GFR ( Amer) Est GFR (Non-Af Amer) BUN/Creatinine Ratio Glucose Calcium Total Bilirubin AST ALT Alkaline Phosphatase Total Protein Albumin Globulin Albumin/Globulin Ratio Vitamin B12 TSH HCG, Qual Urine Color Urine Appearance Urine pH Ur Specific [place] Urine Protein Urine Glucose (UA) Urine Ketones Urine Blood Urine Nitrite Urine Bilirubin Urine Urobilinogen Ur Leukocyte Esterase Salicylates Urine Opiates Screen Ur Methadone, Qual Acetaminophen Urine Barbiturates Ur Phencyclidine (PCP) U Amphetamin/Meth Scrn MDMA (Ecstasy) Screen U Benzodiazepines Scrn Red Devil 0.2 L Ur Cocaine Metabolite U Marijuana (THC) Screen Ethyl Alcohol mg/dL SARS-CoV-2, RNA, NAAT Hospital Course (1) Major depressive disorder, recurrent episode with anxious distress: (2) Insomnia: Plan 12/12/2023: Continue current medications and tx plan. 12/11/2023: Continue current medications and tx plan. 12/10/2023: Continue current medications and tx plan. 12/09/2023: Continue current medications and tx plan. 12/08/2023: Continue current medications and tx plan. 12/07/2023: Continue current medications and tx plan. 12/06/2023: -Red Devil level tomorrow AM -Continue current medications and tx plan 12/05/2023: -Discontinue Doxepin as ineffective and further dose titration raises concern for serotonin syndrome risk -Start olanzapine 10mg HS po 12/04/2023: -Start doxepin 25mg HS po -Discontinue Seroquel 200mg HS 12/03/2023: -Continue current medications and tx plan. 12/02/23: -Seroquel to 200mg moved to Qpm with food -Continue Red Devil 300mg HS. For augmentation. -Continue Prozac 40mg PO qam -Continue Suicide precautions 12/01/23: -Lower Seroquel to 200mg HS -Remeron discontinued last night -Red Devil started last night at 300mg HS. Will continue without changes for augmentation. -Rest of medications without changes. -Continue Suicide precautions 11/30/23: -Discontinue Benadryl -Rest of medications without changes. -Continue Suicide precautions 11/29/23: -Decrease Seroquel to 400mg po HS -Add Benadryl (in substitution for Hydroxyzine) at 50mg PO PRN HS for insomnia. Due to concerns about antichol rebound from rapid taper of Seroquel -Continue Prozac to 40mg po daily. -Continue rest of medications without changes. -Start B12 IM 1000mcg x one dose now -Monitor mood and sleep pattern 11/28/23: -Continue Prozac to 40mg po daily. -Continue rest of medications without changes -Start B12 IM 1000mcg x one dose now -Monitor mood and sleep pattern 11/27/23: -Increase Prozac to 40mg po daily -Continue rest of medications without changes -Start B12 IM 1000mcg x one dose now -Monitor mood and sleep pattern 11/26/23: -continue Seroquel 600 mg daily, -Discontinue Zoloft, -Continue Prozac at 20 mg, - Schedule Remeron at 7.5 PO QHS (no longer PRN) -Adjust Klonopin to scheduled 05.mg po q4pm and 1mg po qhs (short term use). -Collect B12 level 11/25/23:The patient was admitted to the [facility] ([facility] inpatient mental health unit) on q15 min checks (behavioral with suicide precautions) for safety. The patient will participate in group, recreational, and milieu therapies and will be offered additional individual and family sessions as clinically appropriate. Mental Health & Subst Abuse Tx Psychiatrist Name of Psychiatrist: [facility] [place] Psychiatrist's Date Of Appointment With Psychiatric Provider: 12/16/2023 Time of Appointment with Psychiatrist: 8:30am Psychiatric Appointment Comment: [address] [place] [phone] Therapist Name of Therapist: [facility] [place] Therapist's Time of Therapist Appointment: Requested to add you to waitlist for therapy. Therapy Appointment Comment: [address] [place] [id number] Post Discharge Appointments Smoking Cessation Counseling Tobacco Cessation Medication Prescribed at Discharge: Offered & Prescribed Contact Information Discharge Discharge Address: [facility] [place] [address], [address] [place] [id number] Discharge Plan Discharge Items Patient Disposition: Home - Self-Care Reason For Visit: MDD Discharge Diagnosis: Major depressive disorder, recurrent episode with anxious distress: Insomnia Condition on Discharge: Fair Activity: As commented below Activity Comment: May return to work after 1-2 weeks, otherwise resume other activities Non-emergency contact: Primary Care Provider and Psychiatrist Call non-emergency contact if: you have any medication questions Follow-up/Referrals: PCP,NO [Primary Care Provider] - Diet: Regular Addtl Attending Provider Instructions: Continue medications. Utilize Hydroxyzine as needed for anxiety. As mood and sleep symptoms improve; discuss potential dose reduction of nightly zyprexa with outpatient psychiatrist. Pending Studies at Discharge: No Stand-Alone Forms: [employer], Work/School Release, Smoking Cessation Medications and DC Order Prescriptions: New clonazepam 1 mg Tablet 1 mg PO HS Qty: 30 0RF olanzapine 10 mg Tablet 10 mg PO HS Qty: 30 0RF nicotine [Nicoderm CQ] 21 mg/24 hr Patch 24 Hour 1 patch transdermal QAM Qty: 30 1RF folic acid 1 mg Tablet 1 mg PO QAM Qty: 30 0RF hydroxyzine HCl 25 mg Tablet 25 mg PO Q4H PRN (Reason: anxiety) Qty: 30 0RF lithium carbonate 300 mg Tablet 300 mg PO HS Qty: 30 0RF fluoxetine 40 mg capsule 40 mg PO QAM Qty: 30 0RF Discontinued quetiapine [Seroquel] 200 mg tablet 200 mg PO HS fluoxetine [Prozac] 20 mg capsule 20 mg PO DAILY mirtazapine 7.5 mg tablet 7.5 mg PO HS PRN (Reason: Insomnia) quetiapine [Seroquel] 400 mg tablet 400 mg PO HS trazodone 150 mg tablet 150 mg PO HS PRN (Reason: Insomnia) clonazepam 1 mg tablet 1 mg PO TID PRN (Reason: Anxiety) Discharge Orders: Discharge Order (Routine); Ordered 12/12/23 Ordered By: Mayo Camacho Admission Data Admit Date/Time: 11/25/23 22:37 Attending Provider: Mayo Camacho Admit Provider: Trixie Quintanilla Primary Care Provider: PCP,NO Other Providers: Trixie Quintanilla Other Interventions: Discharge Summary Assessment (RN) Last Done: 12/12/23 12:41 PSY Interdisciplinary Discharge Planning Last Done: 12/08/23 10:16 Coding [place] [address] D/C day mgmt > 30 min Patient Type Established History Expanded Problem Focused Exam Expanded Problem Focused Medical Decision Making Moderate Complexity Diagnoses Major depressive disorder, recurrent episode with anxious distress F33.9 Insomnia G47.00 Time Spent (min) 60
== END 2023-12-12 13:28 | disposition home or self-care (01) | DRG 885 ==
LOC: ED 17:38 → 3S 22:37 → SUATTDRO 22:37 → 3S 22:41